=== PATIENT | male | born 1990 | race Caucasian/White ===

== ENCOUNTER 2023-02-18 19:53 | Observation (INO) | payer BC ==
[2023-02-18 20:39] LABS: Basophils % (A) 0 %; Eosinophils # (A) 0.1 k/uL (0-0.7); Eosinophils % (A) 2 %; HCT 44.7 % (39.0-53.0); HGB 15.3 gm/dL (13.0-17.5); Lymphocytes # (A) 1.4 k/uL (1.0-4.8); Lymphocytes % (A) 28 %; MCHC 34.3 g/dL (31.0-37.0); MCV 96.1 fL (80.0-100.0); Mean Platelet Volume 7.5; Monocytes # (A) 0.5 k/uL (0-1.0); Monocytes % (A) 9 %; Neutrophils # (A) 2.9 k/uL (1.3-7.7); Neutrophils % (A) 59 %; Platelet Count 212 k/uL (150-450); RBC 4.65 m/uL (4.30-5.90); RDW 12.4 % (11.5-15.5); WBC 4.9 k/uL (3.8-10.6)
[2023-02-18 20:59] LABS: ALT 47 U/L (4-49); AST 46 U/L (17-59); African American GFR (CKD) >90 (>60 ml/min/1.73 sqM); Albumin 4.6 g/dL (3.5-5.0); Alkaline Phosphatase 76 U/L (38-126); Anion Gap 11 mmol/L; Blood Urea Nitrogen 8 mg/dL (9-20); Calcium 9.3 mg/dL (8.4-10.2); Carbon Dioxide 25 mmol/L (22-30); Chloride 97 mmol/L (98-107); Glucose 106 mg/dL (74-99); Lipase 48 U/L (23-300); Magnesium 1.8 mg/dL (1.6-2.3); Non-African American GFR(CKD) >90 (>60 ml/min/1.73 sqM); Potassium 4.1 mmol/L (3.5-5.1); Sodium 133 mmol/L (137-145); Total Bilirubin 1.4 mg/dL (0.2-1.3); Total Protein 7.8 g/dL (6.3-8.2)
--- NOTE | 2023-02-18 21:21 | CT ---
EXAMINATION TYPE: CT brain wo con DATE OF EXAM: 02/18/2023 COMPARISON: None HISTORY: Seizure x1min CT DLP: 1162.[address] of the brain was performed. The ventricles, basal cisterns and sulci overlying the cerebral convexities demonstrate a normal appe arance. There is no evidence for intracranial hemorrhage or sulcal effacement. No mass effects are seen. Osseous calvarium is intact. If symptoms persist consider MRI as clinically warranted. IMPRESSION: 1. No acute intracranial process is seen at this time.
[2023-02-18] MEDS ORDERED: SODIUM CHLORIDE 0.9% 1,000 ML IV ONE (21:46)
[2023-02-18] MEDS ORDERED: NALOXONE 0.4 MG/ML 1 ML VIAL IV PRN (21:53)
--- NOTE | 2023-02-18 21:53 | ED ---
General Adult HPI - General Chief complaint: Seizure Stated complaint: roxizure Time Seen by Provider: 02/18/23 20:02 Source: patient, family Mode of arrival: EMS Limitations: no limitations - History of Present Illness Initial comments: This is a 32-year-old male with no past medical history presents emergency department via EMS for a reported seizure. The patient's family member was at the house when she noted that the patient did have a tonic-clonic seizure lasting for approximately one minute. The patient reportedly has no history of seizures and is never had a seizure in the past. The patient himself did have confusion upon waking up from the seizure but only lasted for approximately 10 minutes. The patient himself denied any acute pain or distress and denied any lightheadedness or dizziness as well as any headaches prior to the seizure-like activity. The patient himself denied any acute pain at this time. The patient was resting in bed comfortably. The patient did state that he uses alcohol approximate 2 times per week but stated that is not consistent. The patient denied any other drug use. - Related Data Allergies Allergy/AdvReac Type Severity Reaction Status Date / Time shellfish derived [Shellfish] Allergy Anaphylaxis Verified 02/18/23 20:02 Review of Systems ROS Statement: Those systems with pertinent positive or pertinent negative responses have been documented in the HPI. ROS Other: All systems not noted in ROS Statement are negative. Past Medical History Additional Past Medical History / Comment(s): kidney stones History of Any Multi-Drug Resistant Organisms: None Reported Past Psychological History: No Psychological Hx Reported Smoking Status: Current every day smoker Past Alcohol Use History: Occasional Past Drug Use History: None Reported General Exam Limitations: no limitations General appearance: alert, in no apparent distress Head exam: Present: atraumatic, normocephalic, normal inspection Eye exam: Present: normal appearance, PERRL Pupils: Present: normal accommodation ENT exam: Present: normal exam, normal oropharynx, mucous membranes moist Neck exam: Present: normal inspection, full ROM Respiratory exam: Present: normal lung sounds bilaterally Cardiovascular Exam: Present: regular rate, normal rhythm, normal heart sounds GI/Abdominal exam: Present: soft, normal bowel sounds Extremities exam: Present: normal inspection, full ROM Back exam: Present: normal inspection, full ROM Neurological exam: Present: alert, oriented X3, CN II-XII intact Psychiatric exam: Present: normal affect, normal mood Skin exam: Present: warm, dry Course Vital Signs 02/18/23 19:56 Temperature 97.6 F Pulse Rate 101 H Respiratory 26 H Rate Blood Pressure 134/96 O2 Sat by Pulse 99 Oximetry EKG Findings - EKG Comments: EKG Findings:: An EKG was obtained was interpreted by myself showing a rate of 99, MN interval 143, QRS duration of 94 and QTC of 377. This EKG showed a normal sinus rhythm with an incomplete right bundle branch block. There was no ST segment elevation or depression noted. Medical Decision Making - Medical Decision Making Was pt. sent in by a medical professional or institution (, PA, RN QUALITY, urgent care, hospital, or fdc...) When possible be specific @ -No Did you speak to anyone other than the patient for history (EMS, parent, family, police, friend...)? What history was obtained from this source @ -Yes, patient family member who witnessed the tonic clonic seizure and stated that it lasted 1 minute and had confusion after the episode Did you review nursing and triage notes (agree or disagree)? Why? @ -I reviewed and agree with nursing and triage notes Were old charts reviewed (outside hosp., previous admission, EMS record, old EKG, old radiological studies, urgent care reports/EKG's, fdc records)? Report findings @ -No old charts were reviewed Differential Diagnosis (chest pain, altered mental status, abdominal pain women, abdominal pain men, vaginal bleeding, weakness, fever, dyspnea, syncope, headache, dizziness, GI bleed, back pain, seizure, CVA, palpatations, mental health)? @ -New onset seizure, intracranial tumor, electrolyte abnormality EKG interpreted by me (3pts min.). @ -As above X-rays interpreted by me (1pt min.). @ -None done CT interpreted by me (1pt min.). @ -CT head was obtained and was interpreted by myself showing no acute process. U/S interpreted by me (1pt. min.). @ -None done What testing was considered but not performed or refused? (CT, X-rays, U/S, labs)? Why? @ -None What meds were considered but not given or refused? Why? @ -None Did you discuss the management of the patient with other professionals (professionals i.e. , PA, RN QUALITY, lab, RT, psych nurse, social media intern, derrick boat lever operator, teacher, patient safety officer, caseworker intake)? Give summary @ -Yes, admitting physician was contacted regarding patient's admission. Was smoking cessation discussed for >3mins.? @ -No Was critical care preformed (if so, how long)? @ -No Were there social determinants of health that impacted care today? How? (Homelessness, low income, unemployed, alcoholism, drug addiction, transportation, low edu. Level, literacy, decrease access to med. care, detention, rehab)? @ -No Was there de-escalation of care discussed even if they declined (Discuss DNR or withdrawal of care, Hospice)? DNR status @ -No What co-morbidities impacted this encounter? (DM, HTN, Smoking, COPD, CAD, Cancer, CVA, ARF, Chemo, Hep., AIDS, mental health diagnosis, sleep apnea, morbid obesity)? @ -None Was patient admitted / discharged? Hospital course, mention meds given and route, prescriptions, significant lab abnormalities, going to OR and other pertinent info. @ -The patient was seen and evaluated in the emergency department. Physical exam, the patient was resting in bed without any acute distress. Vital signs ad mission were stable. All workup including CT head was negative and there was no known etiology for his new-onset seizures. Due to this in the setting of the patient's symptoms, the patient will be admitted for further workup and evaluation of his new-onset seizures. The patient was agreeable to this plan and was admitted in stable condition. Undiagnosed new problem with uncertain prognosis? @ -No Drug Therapy requiring intensive monitoring for toxicity (Heparin, Nitro, Insulin, Cardizem)? @ -No Were any procedures done? @ -No Diagnosis/symptom? @ -New-onset seizure Acute, or Chronic, or Acute on Chronic? @ -Acute Uncomplicated (without systemic symptoms) or Complicated (systemic symptoms)? @ -Complicated Side effects of treatment? @ -No Exacerbation, Progression, or Severe Exacerbation? @ -No Poses a threat to life or bodily function? How? (Chest pain, [place], [place], pneumonia, PE, COPD, DKA, ARF, appy, cholecystitis, CVA, Diverticulitis, Homicidal, Suicidal, threat to staff... and all critical care pts) @ -Yes, continued seizures can lead to permanent damage and bodily harm with possible - Lab Data Result diagrams: 02/18/23 20:18 02/18/23 20:18 Lab Results 02/18/23 02/18/23 02/18/23 Range/Units 20:18 20:18 20:18 WBC 4.9 (3.8-10.6) k/uL RBC 4.65 (4.30-5.90) m/uL Hgb 15.3 (13.0-17.5) gm/dL Hct 44.7 (39.0-53.0) % MCV 96.1 (80.0-100.0) fL MCH 33.0 (25.0-35.0) pg MCHC 34.3 (31.0-37.0) g/dL RDW 12.4 (11.5-15.5) % Plt Count 212 (150-450) k/uL MPV 7.5 Neutrophils % 59 % Lymphocytes % 28 % Monocytes % 9 % Eosinophils % 2 % Basophils % 0 % Neutrophils # 2.9 (1.3-7.7) k/uL Lymphocytes # 1.4 (1.0-4.8) k/uL Monocytes # 0.5 (0-1.0) k/uL Eosinophils # 0.1 (0-0.7) k/uL Basophils # 0.0 (0-0.2) k/uL Sodium 133 L (137-145) mmol/L Potassium 4.1 (3.5-5.1) mmol/L Chloride 97 L (98-107) mmol/L Carbon Dioxide 25 (22-30) mmol/L Anion Gap 11 mmol/L BUN 8 L (9-20) mg/dL Creatinine 0.60 L (0.66-1.25) mg/dL Est GFR (CKD-EPI)AfAm >90 (>60 ml/min/1.73 sqM) Est GFR (CKD-EPI)NonAf >90 (>60 ml/min/1.73 sqM) Glucose 106 H (74-99) mg/dL Plasma Lactic Acid Tree 2.9 H* (0.7-2.0) mmol/L Calcium 9.3 (8.4-10.2) mg/dL Magnesium 1.8 (1.6-2.3) mg/dL Total Bilirubin 1.4 H (0.2-1.3) mg/dL AST 46 (17-59) U/L ALT 47 (4-49) U/L Alkaline Phosphatase 76 (38-126) U/L Total Protein 7.8 (6.3-8.2) g/dL Albumin 4.6 (3.5-5.0) g/dL Lipase 48 (23-300) U/L Disposition Clinical Impression: New onset seizure Disposition: ADMITTED IP TO THIS [facility] Condition: Stable Is patient prescribed a controlled substance at d/c from ED?: No Referrals: None,Stated [Primary Care Provider] - 1-2 days Time of Disposition: 21:45 Decision to Admit Reason: Admit from EC Decision Date: 02/18/23 Decision Time: 21:45
[2023-02-18] MEDS: SODIUM CHLORIDE 0.9% 1,000 ML IV SCH (22:44)
[2023-02-18] MEDS ORDERED: LORazepam 2 MG/ML INJ IV PRN (22:59)
[2023-02-19 03:24] VITALS: TEMP 97.6
[2023-02-19 09:16] VITALS: BP 115/71; PULSE 72; RESP 18
[2023-02-19 12:42] LABS: Amphetamine Screen,Urine Detected (NotDetected); Benzodiazepines Screen,Urine Not Detected (NotDetected); Cocaine Screen,Urine Not Detected (NotDetected); Opiate Screen,Urine Not Detected (NotDetected); Phencyclidine Screen,Urine Not Detected (NotDetected); Urn Cannabinoid Scrn Not Detected (NotDetected)
[2023-02-19 12:43] LABS: Barbiturate Screen,Urine Not Detected (NotDetected); Methadone Screen, Urine Not Detected (NotDetected); Oxycodone Screen, Urine Not Detected (NotDetected); Tricyclic Antidepressant,Urine Not Detected (NotDetected)
[2023-02-19] MEDS: SODIUM CHLORIDE 0.9% 1,000 ML IV SCH (14:11)
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
--- NOTE | 2023-03-01 23:42 | P.HPIM ---
History of Present Illness H&P Date: 02/19/23 Chief Complaint: Seizures Patient is a 32-year-old male with a known history of renal stones, currently everyday smoker and recent alcohol use was brought to the hospital by ambulance due to new onset seizure. Patient's fianc is at bedside who witnessed seizure activity. Patient was on the couch and watching TV and patient's BIMC went to the kitchen to get some food heated in the microwave when she turned around she saw him having jerking movements and foaming from the mouth and was having shaking all over the body. Episode lasted about 1 minute. Patient felt very weak and drowsy for about 5 minutes and came back to baseline. By the time EMS had ordered patient is back to baseline. Denied any bladder or bowel incontinence. No tongue bite. Otherwise patient denies any fever or chills. No headache dizziness or blurred vision. Patient does vaping and history of smoking quit 2 years ago. Patient states that he has been taking alcohol heavily about fifth of vodka 3-4 times a week which he has been doing for for the past 1 and half week. Last drink was on Tuesday. And had seizure on Tuesday night. Previously he was drinking about a couple of shots of vodka articular 1 to twice a week. CT head showed no acute intracranial process. Laboratory showed WBC 4.9 hemoglobin 15.3 and platelets 212 sodium 133 potassium 4.1 chloride 97 bicarb is 25 BUN 18 creatinine 0.6 and blood sugar 106 and lactic acid 2.9 on admission and total bilirubin level is 1.8 magnesium 1.8 and UDS is positive for amphetamine screen. EKG showed sinus rhythm. Review of Systems Constitutional: Patient denies any fever or chills . no Generalized weakness. Abdomen: Patient denied any nausea or vomiting or abd. pain Cardiovascular: Patient denies any chest pain or short of breath no palpitations. Respiratory: patient denied any cough . no sputum production. No shortness of breath Neurologic: Patient denied any numbness or tingling headache. Musculoskeletal: Patient denies any complaints of joint swelling or deformity. Skin: Negative Psychiatric: Negative Endocrine: No heat or cold intolerance. No recent weight gain. Genitourinary: No dysuria or hematuria. All other 14 point ROS negative except the above Past Medical History Additional Past Medical History / Comment(s): kidney stones History of Any Multi-Drug Resistant Organisms: None Reported Past Psychological History: No Psychological Hx Reported Smoking Status: Current every day smoker Past Alcohol Use History: Occasional Past Drug Use History: None Reported Medications and Allergies Home Medications Medication Instructions Recorded Confirmed Type Folic Acid 1 mg PO DAILY #14 tablet 02/19/23 Rx Thiamine [Vitamin B-1] 100 mg PO DAILY #14 tablet 02/19/23 Rx Allergies Allergy/AdvReac Type Severity Reaction Status Date / Time shellfish derived [Shellfish] Allergy Anaphylaxis Verified 02/18/23 22:08 Physical Exam Vitals: Vital Signs Temp Pulse Pulse Resp BP BP Pulse Ox 02/19/23 07:06 97.6 F 72 18 115/71 98 02/19/23 02:45 97.6 F 68 17 140/72 98 02/18/23 23:32 98.5 F 88 17 106/67 96 02/18/23 19:56 97.6 F 101 H 26 H 134/96 99 Intake and Output 02/18/23 02/19/23 02/19/23 22:59 06:59 14:59 Other: # Voids 1 Weight 74.843 kg 74.843 kg PHYSICAL EXAMINATION: Patient is lying in the bed comfortably, no acute distress, awake alert and oriented.. HEENT: Normocephalic. Neck is supple. Pupils reactive. Nostrils clear. Oral cavity is moist. Neck reveals no JVD, carotid bruits, or thyromegaly. CHEST EXAMINATION: Trachea is central. Symmetrical expansion. Lung rivas clear to auscultation and percussion. CARDIAC: Normal S1, S2 with no gallops. No murmurs ABDOMEN: Soft. Bowel sounds present. Nontender. No organomegaly. No abdominal bruits. Extremities: reveal no edema. No clubbing or cyanosis Neurologically awake, alert, oriented x3 with well-coordinated movements. No focal deficits noted Skin: No rash or skin lesions. Psychiatric: Coperative. Nonsuicidal, Musculoskeletal: No joint swelling or deformity. Normal range of motion. Results CBC & Chem 7: 02/18/23 20:18 02/18/23 20:18 Labs: Abnormal Lab Results - Last 24 Hours (Table) 02/18/23 02/18/23 Range/Units 20:18 20:18 Sodium 133 L (137-145) mmol/L Chloride 97 L (98-107) mmol/L BUN 8 L (9-20) mg/dL Creatinine 0.60 L (0.66-1.25) mg/dL Glucose 106 H (74-99) mg/dL Plasma Lactic Acid Tree 2.9 H* (0.7-2.0) mmol/L Total Bilirubin 1.4 H (0.2-1.3) mg/dL Thrombosis Risk Factor Assmnt - DVT/VTE Prophylaxis DVT/VTE Prophylaxis: Pharmacologic Prophylaxis ordered Assessment and Plan Assessment: New onset seizures likely due to alcohol withdrawal. Lactic acidosis 2.9 on admission Hypovolemic hyponatremia Ongoing vaping History of smoking 1 pack/day quit 2 years ago Heavy alcohol use for the past 1 and half week. History of marijuana use UDS positive for amphetamines History of renal stones DVT prophylaxis with heparin subcu Plan: Patient will be continued on IV hydration and continue with seizure precautions and fall precautions. No further episodes of seizures while in the hospital. Replace electrolytes and continue to monitor. Monitor for alcohol withdrawal sy mptoms. Patient was seen by neurology and recommended EEG. EEG could not be done until Tuesday morning while in the hospital. Patient is back to baseline and would like to be discharged home. Recommended to follow-up with outpatient neurology for MRI of the brain and also EEG. Cleared from neurology standpoint. Continue with thiamine and folic acid. Time with Patient: Greater than 30
--- NOTE | 2023-03-01 23:43 | P.DS ---
Providers Date of admission: 02/18/23 21:53 Expected date of discharge: 02/19/23 Attending physician: Karsten Cruz Consults: 02/18/23 21:53 Consult Physician Routine Consulting Provider: Danielle Skaggs Consult Reason/Comments: New onset seizure Do you want consulting provider notified?: Yes, Notify in am Primary care physician: Stated None Hospital Course: Discharge diagnosis New onset seizures likely due to alcohol withdrawal. Lactic acidosis 2.9 on admission Hypovolemic hyponatremia Ongoing vaping History of smoking 1 pack/day quit 2 years ago Heavy alcohol use for the past 1 and half week. History of marijuana use UDS positive for amphetamines History of renal stones DVT prophylaxis with heparin subcu Hospital course Patient is a 32-year-old male with a known history of renal stones, currently everyday smoker and recent alcohol use was brought to the hospital by ambulance due to new onset seizure. Patient's fianc is at bedside who witnessed seizure activity. Patient was on the couch and watching TV and patient's BIMC went to the kitchen to get some food heated in the microwave when she turned around she saw him having jerking movements and foaming from the mouth and was having shaking all over the body. Episode lasted about 1 minute. Patient felt very weak and drowsy for about 5 minutes and came back to baseline. By the time EMS had ordered patient is back to baseline. Denied any bladder or bowel incontinence. No tongue bite. Otherwise patient denies any fever or chills. No headache dizziness or blurred vision. Patient does vaping and history of smoking quit 2 years ago. Patient states that he has been taking alcohol heavily about fifth of vodka 3-4 times a week which he has been doing for for the past 1 and half week. Last drink was on Tuesday. And had seizure on Tuesday night. Previously he was drinking about a couple of shots of vodka articular 1 to twice a week. CT head showed no acute intracranial process. Laboratory showed WBC 4.9 hemoglobin 15.3 and platelets 212 sodium 133 potassium 4.1 chloride 97 bicarb is 25 BUN 18 creatinine 0.6 and blood sugar 106 and lactic acid 2.9 on admission and total bilirubin level is 1.8 magnesium 1.8 and UDS is positive for amphetamine screen. EKG showed sinus rhythm. Patient was continued on IV hydration and continue with seizure precautions and fall precautions. No further episodes of seizures while in the hospital. Replace electrolytes and continue to monitor. Monitor for alcohol withdrawal symptoms. Patient was seen by neurology and recommended EEG. EEG could not be done until Tuesday morning while in the hospital. Patient is back to baseline and would like to be discharged home. Recommended to follow-up with outpatient neurology for MRI of the brain and also EEG. Cleared from neurology standpoint. Continue with thiamine and folic acid. PHYSICAL EXAMINATION: Patient is lying in the bed comfortably, no acute distress, awake alert and oriented.. HEENT: Normocephalic. Neck is supple. Pupils reactive. Nostrils clear. Oral cavity is moist. Neck reveals no JVD, carotid bruits, or thyromegaly. CHEST EXAMINATION: Trachea is central. Symmetrical expansion. Lung rivas clear to auscultation and percussion. CARDIAC: Normal S1, S2 with no gallops. No murmurs ABDOMEN: Soft. Bowel sounds present. Nontender. No organomegaly. No abdominal bruits. Extremities: reveal no edema. No clubbing or cyanosis Neurologically awake, alert, oriented x3 with well-coordinated movements. No focal deficits noted Skin: No rash or skin lesions. Psychiatric: Coperative. Nonsuicidal, Musculoskeletal: No joint swelling or deformity. Normal range of motion. Discharge vitals reviewed. Patient Condition at Discharge: Stable Plan - Discharge Summary New Discharge Prescriptions: New Folic Acid 1 mg PO DAILY #14 tablet Thiamine [Vitamin B-1] 100 mg PO DAILY #14 tablet Discharge Medication List Folic Acid 1 mg PO DAILY #14 tablet 02/19/23 [Rx] Thiamine [Vitamin B-1] 100 mg PO DAILY #14 tablet 02/19/23 [Rx] Follow up Appointment(s)/Referral(s): Ada Avitia MD [Medical Doctor] - 1 Week None,Stated [Primary Care Provider] - 1-2 days Patient Instructions/Handouts: Seizure/Epilepsy Discharge Instructions & F ollow-Up Discharge Disposition: HOME SELF-CARE
== END 2023-02-19 14:20 | disposition home or self-care (01) ==
LOC: EC 19:53 → INTOOBSV 21:53 → 4SSUR 21:53 → 6NMEDSUR 22:52 → UNDODISIN 02-19 14:20
PROVIDERS: ADMIT Family Medicine; ATTEND Family Medicine
DX: R56.9 Unspecified convulsions (principal); F12.90 Cannabis use, unspecified, uncomplicated; F15.90 Other stimulant use, unspecified, uncomplicated; E86.1 Hypovolemia; E87.1 Hypo-osmolality and hyponatremia; F17.290 Nicotine dependence, other tobacco product, uncomplicated; F10.90 Alcohol use, unspecified, uncomplicated; Z87.442 Personal history of urinary calculi
CPT/HCPCS: 96360; 99285; 36415; 93005; 80053; 83605 ×2; 83690; 83735; 85025; 80306; 70450; G0378 ×2

== ENCOUNTER 2023-11-09 14:34 | Emergency (ER) | payer BC ==
[2023-11-09 15:03] VITALS: BP 132/79; PULSE 99; RESP 18; TEMP 98.4
--- NOTE | 2023-11-09 16:52 | CT ---
EXAMINATION TYPE: CT brain cspine wo con CT DLP: 1396.4 mGycm, Automated exposure control for dose reduction was used. DATE OF EXAM: 11/09/2023 4:40 PM COMPARISON: None. CLINICAL INDICATION:Male, 32 years old with history of seizure w/ fall; Pt states he stood up too fas t and passed out, hitting the rt side of his head. Has bruising to rt ear. Had a 3-4min seizure follo wing. TECHNIQUE: Brain: Multiple axial CT images of the brain were obtained without IV contrast. Cspine: Axial CT images from the skull base to the inferior aspect of T2 we obtained without intraven ous contrast. Coronal and sagittal reformatted images were also reviewed. FINDINGS: Brain: Extra-axial spaces: No abnormal extra-axial fluid collections. Ventricular system: Within normal limits Cerebral parenchyma: No acute intraparenchymal hemorrhage or mass effect. The helms-white junction is well differentiated. Cerebellum: Unremarkable. Mass effect: No evidence of midline shift. Intracranial vasculature: unremarkable Soft tissues: Normal. Calvarium/osseous structures: No depressed skull fracture. Paranasal sinuses and mastoid air cells: Mild scattered mucosal thickening and or secretions. Visualized orbits: Orbital contents are intact. Cervical spine: Fracture: None. Osseous structures: Unremarkable Vertebral alignment: Within normal limits. Spinal canal/Neural Foramina: No evidence of significant spinal canal narrowing. No evidence for sign ificant neural foraminal stenosis. Neck soft tissues: Prevertebral soft tissues are within normal limits. Other: The airway is patent. The lung apices are clear. IMPRESSION: 1. No acute intracranial process. 2. No evidence of cervical spine fracture.
--- NOTE | 2023-12-24 17:02 | ED ---
General Adult HPI - General Chief complaint: Seizure Stated complaint: Syncope,Seizure w/hit head Time Seen by Provider: 11/09/23 21:18 Source: patient Mode of arrival: ambulatory Limitations: no limitations - History of Present Illness Initial comments: Quick note: 33-year-old male presenting for evaluation of syncopal episode and seizure - Related Data Previous Rx's Medication Instructions Recorded Folic Acid 1 mg PO DAILY #14 tablet 02/19/23 Thiamine [Vitamin B-1] 100 mg PO DAILY #14 tablet 02/19/23 Allergies Allergy/AdvReac Type Severity Reaction Status Date / Time shellfish derived [Shellfish] Allergy Anaphylaxis Verified 11/09/23 14:58 Review of Systems ROS Statement: Those systems with pertinent positive or pertinent negative responses have been documented in the HPI. ROS Other: All systems not noted in ROS Statement are negative. Past Medical History Additional Past Medical History / Comment(s): kidney stones, seizure History of Any Multi-Drug Resistant Organisms: None Reported Past Surgical History: No Surgical Hx Reported Past Psychological History: No Psychological Hx Reported Smoking Status: Current every day smoker Past Alcohol Use History: Occasional Past Drug Use History: None Reported General Exam Limitations: no limitations Course Vital Signs 11/09/23 14:55 Temperature 98.4 F Pulse Rate 99 Respiratory 18 Rate Blood Pressure 132/79 O2 Sat by Pulse 99 Oximetry Medical Decision Making - Medical Decision Making Quick note was performed on this patient. Patient later left AGAINST MEDICAL ADVICE. I performed the quick note portion of this visit, electronically signed Glenis Giles PA-C Disposition Clinical Impression: Seizure Disposition: LEFT AGAINST MEDICAL ADVICE Condition: Undetermined Referrals: None,Stated [Primary Care Provider] - 1-2 days
== END 2023-11-10 00:41 | disposition left against medical advice (07) ==
LOC: EC 14:34
DX: R56.9 Unspecified convulsions (principal); F17.200 Nicotine dependence, unspecified, uncomplicated; Z53.29 Procedure and treatment not carried out because of patient's decision for other reasons; Z91.013 Allergy to seafood
CPT/HCPCS: 70450; 72125; 99284

== ENCOUNTER 2024-09-25 18:35 | Observation (INO) | payer BC ==
--- NOTE | 2024-09-25 19:35 | ED ---
Alcohol HPI - General Chief Complaint: Alcohol Stated Complaint: Withdrawls Alcohol Time Seen by Provider: 09/25/24 18:44 Source: patient, family Mode of arrival: ambulatory Limitations: no limitations - History of Present Illness Initial Comments: This patient is a 33-year-old man who presents with complaint that he feels like he is starting to have alcohol withdrawal. The patient states that he has been drinking approximately 1/5 and a half of alcohol per day. He states that previously when he has tried to stop drinking he has had withdrawal seizures. Patient states he started to feel a little anxious and shaky. Complaint: alcohol intoxication, alcohol withdrawal, desires rehab -: hour(s) Previous Visits for Alcohol Intoxication?: Yes Recent Trauma: No Associated Symptoms: nausea Treatments Prior to Arrival: none Chronic Alcohol Use: Yes - Related Data Previous Rx's Medication Instructions Recorded Folic Acid 1 mg PO DAILY #14 tablet 02/19/23 Thiamine [Vitamin B-1] 100 mg PO DAILY #14 tablet 02/19/23 Allergies Allergy/AdvReac Type Severity Reaction Status Date / Time shellfish derived [Shellfish] Allergy Anaphylaxis Verified 09/25/24 18:38 Review of Systems ROS Statement: Those systems with pertinent positive or pertinent negative responses have been documented in the HPI. ROS Other: All systems not noted in ROS Statement are negative. Constitutional: Denies: fever, weakness Eyes: Denies: vision change Respiratory: Denies: cough, dyspnea Cardiovascular: Denies: chest pain, palpitations, edema, syncope Gastrointestinal: Reports: nausea. Denies: abdominal pain, vomiting, diarrhea Genitourinary: Denies: dysuria, hematuria Musculoskeletal: Denies: back pain Skin: Denies: rash Neurological: Denies: headache, weakness Psychiatric: Reports: anxiety. Denies: homicidal thoughts, suicidal thoughts Past Medical History Additional Past Medical History / Comment(s): kidney stones, alcohol withdrawal seizures History of Any Multi-Drug Resistant Organisms: None Reported Past Surgical History: No Surgical Hx Reported Additional Past Surgical History / Comment(s): Stents in kidneys, lithotripsy Past Psychological History: No Psychological Hx Reported Smoking Status: Current every day smoker Past Alcohol Use History: Abuse, Daily, Heavy Past Drug Use History: Marijuana General Exam Limitations: no limitations General appearance: alert, in no apparent distress, anxious Head exam: Present: atraumatic, normocephalic Eye exam: Present: normal appearance. Absent: scleral icterus, conjunctival injection Neck exam: Present: normal inspection Respiratory exam: Present: normal lung sounds bilaterally. Absent: respiratory distress, wheezes, rales, rhonchi, stridor, accessory muscle use Cardiovascular Exam: Present: regular rate, normal rhythm, normal heart sounds. Absent: systolic murmur, diastolic murmur, rubs, gallop GI/Abdominal exam: Present: soft. Absent: distended, tenderness, guarding, rebound, rigid, mass Extremities exam: Present: normal inspection, normal capillary refill. Absent: pedal edema, calf tenderness Back exam: Present: normal inspection. Absent: CVA tenderness (R), CVA tenderness (L) Neurological exam: Present: alert Psychiatric exam: Present: normal affect, normal mood, anxious. Absent: flat affect, manic, homicidal ideation, suicidal ideation Skin exam: Present: warm, dry, intact, normal color. Absent: rash Course Vital Signs 09/25/24 09/25/24 18:39 18:58 Temperature 98.2 F Pulse Rate 95 86 Respiratory 18 14 Rate Blood Pressure 129/77 133/92 O2 Sat by Pulse 96 96 Oximetry Disposition Referrals: Jumana Magallon MD [Primary Care Provider] - 1-2 days
[2024-09-25] MEDS: SODIUM CHLORIDE 0.9% 1,000 ML IV STA (19:49)
[2024-09-25] MEDS: chlordiazePOXIDE 25 MG CAP PO STA (19:57)
[2024-09-25 20:03] LABS: Basophils # (A) 0.1 k/uL (0-0.2); Basophils % (A) 1 %; Eosinophils % (A) 0 %; HCT 46.5 % (39.0-53.0); HGB 15.4 gm/dL (13.0-17.5); Lymphocytes # (A) 2.1 k/uL (1.0-4.8); Lymphocytes % (A) 27 %; MCH 33.2 pg (25.0-35.0); MCV 100.7 fL (80.0-100.0); Mean Platelet Volume 7.1; Monocytes # (A) 0.3 k/uL (0-1.0); Monocytes % (A) 4 %; Neutrophils % (A) 64 %; Platelet Count 166 k/uL (150-450); RBC 4.62 m/uL (4.30-5.90); RDW 12.5 % (11.5-15.5); WBC 7.8 k/uL (3.8-10.6)
[2024-09-25 20:10] LABS: ALT 164 U/L (4-49); AST 127 U/L (17-59); African American GFR (CKD) >90 (>60 ml/min/1.73 sqM); Albumin 5.1 g/dL (3.5-5.0); Alkaline Phosphatase 71 U/L (38-126); Anion Gap 17 mmol/L; Blood Urea Nitrogen 12 mg/dL (9-20); Calcium 9.3 mg/dL (8.4-10.2); Carbon Dioxide 24 mmol/L (22-30); Chloride 106 mmol/L (98-107); Glucose 99 mg/dL (74-99); Non-African American GFR(CKD) >90 (>60 ml/min/1.73 sqM); Potassium 4.2 mmol/L (3.5-5.1); Sodium 147 mmol/L (137-145); Total Bilirubin 0.5 mg/dL (0.2-1.3); Total Protein 8.4 g/dL (6.3-8.2)
[2024-09-25 20:21] LABS: Alcohol 394 mg/dL
[2024-09-25] MEDS ORDERED: NALOXONE 0.4 MG/ML 1 ML VIAL IV PRN (20:49)
[2024-09-25] MEDS ORDERED: LORazepam 2 MG/ML INJ IV PRN ×2 (20:51)
[2024-09-25] MEDS: SODIUM CHLORIDE 0.9% 1,000 ML IV SCH (21:36)
[2024-09-25] MEDS: FAMOTIDINE 20 MG TAB PO SCH (21:51)
--- NOTE | 2024-09-25 22:01 | P.HPIM ---
History of Present Illness H&P Date: 09/25/24 Chief Complaint: alcohol withdrawal symptoms History of present illness; 33-year-old man with a PMH of renal stones, current everyday smoker, previous seizures and known alcohol use presents to the emergency department because he feels like he is starting to have alcohol withdrawals. Patient states he been drinking approximately 1/5 and a half of alcohol per day. He notes that his last drink was this afternoon at 4 PM, when he completed 1/5 of vodka. Additionally he notes that his most recent seizure was on Tuesday of last week. He states that he has attempted to quit drinking alcohol 56 times this year, and suffers from seizures each time. He is presenting today in an effort to get assistance in dealing with the seizures/withdrawal that he feels as though are imminent. He has no acute complaints at this time. Imaging: -EKG currently pending Vitals: -Blood pressure 134/85, heart rate 105, respiratory rate 18, SpO2 98% on room air Patient admitted to internal medicine service REVIEW OF SYSTEMS: CONSTITUTIONAL: No fever, no malaise, no fatigue. HEENT: No recent visual problems or hearing problems. Denied any sore throat. CARDIOVASCULAR: No chest pain, orthopnea, PND, no palpitations, no syncope. PULMONARY: No shortness of breath, no cough, no hemoptysis. GASTROINTESTINAL: No diarrhea, no nausea, no vomiting, no abdominal pain. NEUROLOGICAL: No headaches, no weakness, no numbness. HEMATOLOGICAL: Denies any bleeding or petechiae. GENITOURINARY: Denies any burning micturition, frequency, or urgency. MUSCULOSKELETAL/RHEUMATOLOGICAL: Denies any joint pain, swelling, or any muscle pain. ENDOCRINE: Denies any polyuria or polydipsia. The rest of the 14-point review of systems is negative. PHYSICAL EXAMINATION: GENERAL: The patient is alert and oriented x3, not in any acute distress. Well developed, well nourished. HEENT:No scleral icterus. No conjunctival pallor. Normocephalic, atraumatic. CARDIOVASCULAR: S1 and S2 present. No murmurs, rubs, or gallops. PULMONARY: Chest is clear to auscultation, no wheezing or crackles. ABDOMEN: Soft, nontender, nondistended, normoactive bowel sounds. No palpable organomegaly. MUSCULOSKELETAL: No joint swelling or deformity. EXTREMITIES: No cyanosis, clubbing, or pedal edema. NEUROLOGICAL: Gross neurological examination did not reveal any focal deficits. SKIN: No rashes. Assessment and plan 33-year-old male with PMH of renal stones, current everyday smoker, previous seizures and known alcohol use presents emergency department because he feels as though he started to have alcohol withdrawals. Discussed with the ED, patient has been accepted to the internal medicine service for further evaluation and monitoring of his alcohol withdrawals. #Alcohol dependence/withdrawals -Serum alcohol level 394 -Alkaline phosphatase 71, albumin 5.1 -Previous hospitalizations for alcohol withdrawal; history of alcohol withdrawal seizures -Ativan ivp per [facility] protocol -Give daily thiamine and folic acid and multivitamin -Seizure and fall precautions -Monitor daily electrolytes -Cardiac monitoring -custodial maintenance worker consult -EKG currently pending #Hypernatremia -Initial sodium 147 -Currently maintained on 75 cc/h normal saline -Continue to monitor cmp #Transaminitis 2/2 alcohol abuse -Initial AST 127, ALT 164 -Continue to monitor CMP CODE STATUS: Full Code GI prohylaxis: Protonix 40 mg BID po DVT prophylaxis: [place] Risk Score: 0 point (low risk for VTE, prophylaxis not indicated) , mechanical DVT PPX with SCD Dictation was produced using [employer] dictation software. please excuse any grammatical, word or spelling errors. Past Medical History Additional Past Medical History / Comment(s): kidney stones, alcohol withdrawal seizures History of Any Multi-Drug Resistant Organisms: None Reported Past Surgical History: No Surgical Hx Reported Additional Past Surgical History / Comment(s): Stents in kidneys, lithotripsy Past Psychological History: No Psychological Hx Reported Smoking Status: Current every day smoker Past Alcohol Use History: Abuse, Daily, Heavy Past Drug Use History: Marijuana Medications and Allergies Home Medications Medication Instructions Recorded Confirmed Type No Known Home Medications 09/25/24 09/25/24 History Allergies Allergy/AdvReac Type Severity Reaction Status Date / Time iodine Allergy Anaphylaxis Verified 09/25/24 19:58 shellfish derived [Shellfish] Allergy Anaphylaxis Verified 09/25/24 19:58 Physical Exam Vitals: Vital Signs Temp Pulse Resp BP Pulse Ox 09/25/24 19:59 105 H 18 134/85 98 09/25/24 18:58 86 14 133/92 96 09/25/24 18:39 98.2 F 95 18 129/77 96 Intake and Output 09/25/24 09/25/24 09/25/24 06:59 14:59 22:59 Other: Weight 73.936 kg Results CBC & Chem 7: 09/25/24 19:37 09/25/24 19:37 Labs: Abnormal Lab Results - Last 24 Hours (Table) 09/25/24 09/25/24 Range/Units 19:37 19:37 MCV 100.7 H (80.0-100.0) fL Sodium 147 H (137-145) mmol/L AST 127 H (17-59) U/L ALT 164 H (4-49) U/L Total Protein 8.4 H (6.3-8.2) g/dL Albumin 5.1 H (3.5-5.0) g/dL Serum Alcohol 394 H* mg/dL Assessment and Plan Assessment: I have seen and evaluated the patient today. I Discussed the case with the resident and agree with the resident's findings I edited the assessment and plan as necessary as documented in the resident's note.
[2024-09-26] MEDS: chlordiazePOXIDE 25 MG CAP PO PRN (00:07)
[2024-09-26] MEDS: LORazepam 2 MG/ML INJ IV PRN (01:35)
[2024-09-26] MEDS: NICOTINE 21MG/24HR PATCH TRANSDERM SCH (08:34)
[2024-09-26] MEDS: MULTIVITAMINS, THERA 1 EACH TAB PO SCH (08:34)
[2024-09-26] MEDS: THIAMINE 100 MG TAB PO SCH (08:34)
[2024-09-26] MEDS: FOLIC ACID 1 MG TAB PO SCH (08:34)
[2024-09-26] MEDS: PANTOPRAZOLE 40 MG TABLET PO SCH (08:35)
[2024-09-26 08:44] LABS: HCT 41.4 % (39.6-50.0); HGB 13.8 g/dL (13.0-17.0); MCH 33.3 pg (27.0-32.0); MCHC 33.3 g/dL (32.0-37.0); NRBC Per 100 WBC 0 X 10*3/uL (0.00-0.01); Platelet Count 157 X 10*3/uL (140-440); RBC 4.14 X 10*6/uL (4.40-5.60); RDW 12.9 % (11.5-14.5); WBC 5.84 X 10*3/uL (4.50-10.00)
[2024-09-26 08:58] LABS: ALT 136 U/L (10-49); AST 108 U/L (14-35); Albumin 4.3 g/dL (3.8-4.9); Albumin/Globulin Ratio 1.72 Ratio (1.60-3.17); Alkaline Phosphatase 55 U/L (41-126); Blood Urea Nitrogen 10.8 mg/dL (9.0-27.0); Calcium 8.4 mg/dL (8.7-10.3); Carbon Dioxide 22.3 mmol/L (21.6-31.8); Chloride 105 mmol/L (96-109); Globulin 2.5 g/dL (1.6-3.3); Glucose 109 mg/dL (70-110); Potassium 3.9 mmol/L (3.5-5.5); Sodium 142 mmol/L (135-145); Total Bilirubin 0.4 mg/dL (0.3-1.2); Total Protein 6.8 g/dL (6.2-8.2)
[2024-09-26 10:08] LABS: Basophils # (A) 0.09 X 10*3/uL (0.00-0.10); Basophils % (A) 1.5 %; Eosinophils # (A) 0.02 X 10*3/uL (0.04-0.35); Eosinophils % (A) 0.3 %; Lymphocytes # (A) 2.06 X 10*3/uL (0.90-5.00); Lymphocytes % (A) 35.3 %; Monocytes # (A) 0.46 X 10*3/uL (0.20-1.00); Monocytes % (A) 7.9 %; Neutrophils # (A) 3.19 X 10*3/uL (1.80-7.70); Neutrophils % (A) 54.7 %
--- NOTE | 2024-09-26 16:39 | P.PN ---
Subjective Progress Note Date: 09/26/24 33-year-old man with a PMH of renal stones, current everyday smoker, previous seizures and known alcohol use presents to the emergency department because he feels like he is starting to have alcohol withdrawals. Patient states he been drinking approximately 1/5 and a half of alcohol per day. He notes that his last drink was this afternoon at 4 PM, when he completed 1/5 of vodka. Additionally he notes that his most recent seizure was on Tuesday of last week. He states that he has attempted to quit drinking alcohol 56 times this year, and suffers from seizures each time. He is presenting today in an effort to get assistance in dealing with the seizures/withdrawal that he feels as though are imminent. He has no acute complaints at this time. Imaging: -EKG showed sinus rhythm with a rate of [address]-T changes good R wave progression QTc 450 Vitals: -Blood pressure 134/85, heart rate 105, respiratory rate 18, SpO2 98% on room air 09/26/2024 patient seen and examined at bedside. Patient reported that he experienced sweats for a few minutes at 1 AM. No acute events overnight. WBC 5.84 hemoglobin 13.8 platelet count 157 sodium 142 potassium 3.9 chloride 105 b icarb 22.3 BUN 10.8 creatinine 0.6 calcium 8.4 AST 108 ALT 136 alk phos 55 albumin 14.3 Review of systems: Pertinent positives and negatives as discussed in HPI, a complete review of systems was performed and all other systems are negative. Pertinent imaging and labs reviewed. Physical examination: Vital signs reviewed General: non toxic, no distress, appears at stated age Derm: no unusual rashes/lesions, warm Head: atraumatic, normocephalic, symmetric Eyes: EOMI, anicteric sclera, pupils equal round reactive to light ENT: Nose and ears atraumatic Neck: No cervical lymphadenopathy, trachea midline, supple Mouth: no lip lesion, mucus membranes moist Cardiovascular: S1S2 reg, no murmur Lungs: CTA bilateral, no rhonchi, no rales, no accessory muscle use Abdominal: soft, nontender to palpation, no guarding Ext: muscle strength 5 out of 5 in all 4 extremities grossly, no gross muscle atrophy, no contractures, positive dorsalis pedis pulse bilateral, no extremity edema Neuro: CN II-XI grossly intact, no gross focal neuro deficits Psych: Alert and oriented x3, appropriate affect and mood Assessment/Plan: 33-year-old male with PMH of renal stones, current everyday smoker, previous s eizures and known alcohol use presents emergency department because he feels as though he started to have alcohol withdrawals. Discussed with the ED, patient has been accepted to the internal medicine service for further evaluation and monitoring of his alcohol withdrawals. #Alcohol intoxication, not in withdrawal #Alcohol use disorder -Cardiac monitoring -supervisor cemetery workers consult -Seizure and fall precautions -EKG showed sinus rhythm with a rate of [address]-T changes good R wave progression QTc 450 -Serum alcohol level 394 -Alkaline phosphatase 71, albumin 5.1 -Monitor daily electrolytes -Previous hospitalizations for alcohol withdrawal; history of alcohol withdrawal seizures -Ativan ivp per [facility] protocol -Discontinued Librium 50 mg p.o. -Give daily thiamine and folic acid and multivitamin -Patient stable and asymptomatic tomorrow may consider discharge #Hypernatremia, resolved -Sodium now at 142 -Currently maintained on 75 cc/h normal saline -Continue to monitor CMP #Transaminitis 2/2 alcohol abuse, stable Patient has not RUQ pain or jaundice -AST 108, ALT 136 -Continue to monitor CMP CODE STATUS: Full Code GI prohylaxis: Protonix 40 mg BID po DVT prophylaxis: [place] Risk Score: 0 point (low risk for VTE, prophylaxis not indicated) , mechanical DVT PPX with SCD Marbella Rai MD PGY-1/Utility [employer]er Dictation was produced using [employer] dictation software. please excuse any grammatical, word or spelling errors. I have seen and evaluated the patient today. Discussed with the resident and agree with the residents finding and plan as documented in the resident's note. Changes highlighted in blue font. Objective - Vital Signs Vital signs: Vital Signs Temp 98.6 F 09/26/24 14:25 Pulse 89 09/26/24 14:25 Resp 16 09/26/24 14:25 BP 131/83 09/26/24 14:25 Pulse Ox 98 09/26/24 14:25 FiO2 Intake & Output 09/25/24 09/26/24 09/26/24 18:59 06:59 18:59 Intake Total 236 Balance 236 Weight 73.936 kg 73.936 kg Intake: Oral 236 Other: Voiding Method Toilet # Voids 2 1 # Bowel Movements 1 - Labs CBC & Chem 7: 09/26/24 04:11 09/26/24 04:11 Labs: Abnormal Lab Results - Last 24 Hours (Table) 09/25/24 09/25/24 09/26/24 Range/Units 19:37 19:37 04:11 RBC 4.14 L (4.40-5.60) X 10*6/uL MCV 100.7 H 100.0 H (80.0-100.0) fL MCH 33.3 H (27.0-32.0) pg Eosinophils # 0.02 L (0.04-0.35) X 10*3/uL Sodium 147 H (137-145) mmol/L Anion Gap (4.00-12.00) mmol/L Calcium (8.7-10.3) mg/dL AST 127 H (17-59) U/L ALT 164 H (4-49) U/L Total Protein 8.4 H (6.3-8.2) g/dL Albumin 5.1 H (3.5-5.0) g/dL Serum Alcohol 394 H* mg/dL 09/26/24 Range/Units 04:11 RBC (4.40-5.60) X 10*6/uL MCV (80.0-100.0) fL MCH (27.0-32.0) pg Eosinophils # (0.04-0.35) X 10*3/uL Sodium (137-145) mmol/L Anion Gap 14.70 H (4.00-12.00) mmol/L Calcium 8.4 L (8.7-10.3) mg/dL AST 108 H (17-59) U/L ALT 136 H (4-49) U/L Total Protein (6.3-8.2) g/dL Albumin (3.5-5.0) g/dL Serum Alcohol mg/dL
[2024-09-27 07:22] VITALS: BP 124/77; PULSE 73; RESP 15; TEMP 98.3
[2024-09-27 10:37] LABS: Basophils # (A) 0.07 X 10*3/uL (0.00-0.10); Basophils % (A) 0.8 %; Eosinophils # (A) 0.07 X 10*3/uL (0.04-0.35); Eosinophils % (A) 0.8 %; HCT 46.1 % (39.6-50.0); HGB 15.5 g/dL (13.0-17.0); Lymphocytes # (A) 2.03 X 10*3/uL (0.90-5.00); Lymphocytes % (A) 24.6 %; MCH 33.3 pg (27.0-32.0); MCHC 33.6 g/dL (32.0-37.0); MCV 98.9 FL (80.0-97.0); Monocytes # (A) 1.04 X 10*3/uL (0.20-1.00); Monocytes % (A) 12.6 %; NRBC Per 100 WBC 0 X 10*3/uL (0.00-0.01); Neutrophils % (A) 60.8 %; Platelet Count 173 X 10*3/uL (140-440); RBC 4.66 X 10*6/uL (4.40-5.60); RDW 12.4 % (11.5-14.5); WBC 8.24 X 10*3/uL (4.50-10.00)
[2024-09-27 12:27] LABS: ALT 136 U/L (10-49); AST 101 U/L (14-35); Albumin 4.4 g/dL (3.8-4.9); Albumin/Globulin Ratio 1.63 Ratio (1.60-3.17); Alkaline Phosphatase 57 U/L (41-126); BUN/Creat Ratio 12.33 Ratio (12.00-20.00); Blood Urea Nitrogen 7.4 mg/dL (9.0-27.0); Calcium 9.2 mg/dL (8.7-10.3); Carbon Dioxide 25.1 mmol/L (21.6-31.8); Chloride 101 mmol/L (96-109); Globulin 2.7 g/dL (1.6-3.3); Glucose 86 mg/dL (70-110); Potassium 3.8 mmol/L (3.5-5.5); Sodium 138 mmol/L (135-145); Total Bilirubin 1.5 mg/dL (0.3-1.2); Total Protein 7.1 g/dL (6.2-8.2)
--- NOTE | 2024-09-27 13:08 | P.DS ---
Providers Date of admission: 09/25/24 20:49 Expected date of discharge: 09/27/24 Attending physician: Abhinav Mccurdy MD [facility]: Final Diagnosis: #Alcohol intoxication, not in withdrawal #Alcohol use disorder #Hypernatremia, resolved #Transaminitis 2/2 alcohol abuse, stable Hospital Course: 33-year-old man with a PMH of renal stones, current everyday smoker, previous seizures and known alcohol use presents to the emergency department because he feels like he is starting to have alcohol withdrawals. Patient states he been drinking approximately 1/5 and a half of alcohol per day. He notes that his last drink was this afternoon at 4 PM, when he completed 1/5 of vodka. Additionally he notes that his most recent seizure was on Tuesday of last week. He states that he has attempted to quit drinking alcohol 56 times this year, and suffers from seizures each time. He is presenting today in an effort to get assistance in dealing with the seizures/withdrawal that he feels as though are imminent. He has no acute complaints at this time. Imaging in the ED showed EKG sinus rhythm with a rate of [address]-T changes good R wave progression QTc 450. On admission, Blood pressure 134/85, heart rate 105, respiratory rate 18, SpO2 98% on room air. Patient was evaluated for alcohol intoxication. Patient was given Ativan per CIWA protocol, placed on seizure and fall precautions, and placed on cardiac telemetry. Patient was also given daily thiamine and folic acid. Patient did not have any acute episodes of seizures or withdrawal symptoms throughout stay. Patient is discharged today with oral thiamine and advised to consider rehabilitation for substance abuse and to follow-up with PCP. Physical examination: Vital signs reviewed General: non toxic, no distress, appears at stated age Derm: no unusual rashes/lesions, warm Head: atraumatic, normocephalic, symmetric Eyes: EOMI, anicteric sclera, pupils equal round reactive to light ENT: Nose and ears atraumatic Neck: No cervical lymphadenopathy, trachea midline, supple Mouth: no lip lesion, mucus membranes moist Cardiovascular: S1S2 reg, no murmur Lungs: CTA bilateral, no rhonchi, no rales, no accessory muscle use Abdominal: soft, nondistended, nontender to palpation, no guarding Ext: muscle strength 5 out of 5 in all 4 extremities grossly, no gross muscle atrophy, no contractures, positive dorsalis pedis pulse bilateral, no edema Neuro: CN II-XI grossly intact, no gross focal neuro deficits Psych: Alert, oriented, appropriate affect and mood A total of 36 minutes of time were spent preparing this complex discharge summary. Patient was discharged on 09/27/2024 at 908. I have seen and evaluated the patient today. Discussed with the resident and agree with the residents finding and plan as documented in the resident's note. Changes highlighted in blue font. Patient Condition at Discharge: Stable Plan - Discharge Summary New Discharge Prescriptions: New Thiamine [Vitamin B-1] 100 mg PO DAILY #90 tab Discharge Medication List Thiamine [Vitamin B-1] 100 mg PO DAILY #90 tab 09/27/24 [Rx] Follow up Appointment(s)/Referral(s): Jumana Magallon MD [Primary Care Provider] - 1-2 days Patient Instructions/Handouts: Seizure/Epilepsy Discharge Instructions & Follow-Up Activity/Diet/Wound Care/Special Instructions: Please follow up with your PCP Discharge/Stand Alone Forms: AA Meetings [facility] [address] [facility] - [facility], AA Meetings [facility], Outpatient Counseling, Inp Substance Abuse Facilities Discharge Disposition: HOME SELF-CARE
== END 2024-09-27 10:57 | disposition home or self-care (01) ==
LOC: EC 18:35 → 6NMEDSUR 20:49
PROVIDERS: ADMIT Internal Medicine; ATTEND Internal Medicine
DX: F10.239 Alcohol dependence with withdrawal, unspecified (principal); F10.229 Alcohol dependence with intoxication, unspecified; E87.0 Hyperosmolality and hypernatremia; R74.01 Elevation of levels of liver transaminase levels; Z87.442 Personal history of urinary calculi; R56.9 Unspecified convulsions; F17.200 Nicotine dependence, unspecified, uncomplicated; Y90.8 Blood alcohol level of 240 mg/100 ml or more
CPT/HCPCS: 96376; 96361 ×2; 96374; 82075; 99285; 36415; 80053 ×3; 85025 ×3; 80320; G0378 ×3; S4990 ×2; J2060

== ENCOUNTER 2024-10-26 21:37 | Emergency (ER) | payer BC, OTHER ==
[2024-10-26 21:42] VITALS: TEMP 98.4
--- NOTE | 2024-10-26 21:59 | ED ---
Psych HPI - General Source: patient, EMS, RN notes reviewed Mode of arrival: EMS - History of Present Illness Onset/Timin -: days(s) <Miguel Aranda - Last Filed: 10/26/24 21:56> <Se Cotton - Last Filed: 10/26/24 22:37> <Alek Whitney - Last Filed: 10/27/24 14:46> - General Chief Complaint: Psychiatric Symptoms Stated Complaint: ETOH Time Seen by Provider: 10/26/24 21:49 - History of Present Illness Initial Comments: Note: This is a 33-year-old male with history of EtOH withdrawal presenting via EMS for "drinking too much today". Patient states he is having increased life stressors, stating he drank 1/5 of liquor today. Patient states he is hungry bu t otherwise denies any abdominal pain or nausea/vomiting. Denies visual/auditory hallucinations, significant mental health history or suicidal/homicidal ideation, stating he has 2 children and could not kill himself for their sake. (Miguel Aranda) - Related Data Home Medications Medication Instructions Recorded Confirmed No Known Home Medications 10/27/24 10/27/24 Allergies Allergy/AdvReac Type Severity Reaction Status Date / Time iodine Allergy Anaphylaxis Verified 10/27/24 11:39 shellfish derived [Shellfish] Allergy Anaphylaxis Verified 10/27/24 11:39 Review of Systems ROS Other: All systems not noted in ROS Statement are negative. <Miguel Aranda - Last Filed: 10/26/24 21:56> ROS Other: All systems not noted in ROS Statement are negative. <Se Cotton - Last Filed: 10/26/24 22:37> ROS Other: All systems not noted in ROS Statement are negative. <Alek Whitney - Last Filed: 10/27/24 14:46> ROS Statement: Those systems with pertinent positive or pertinent negative responses have been documented in the HPI. Past Medical History Additional Past Medical History / Comment(s): kidney stones, alcohol withdrawal seizures History of Any Multi-Drug Resistant Organisms: None Reported Past Surgical History: No Surgical Hx Reported Additional Past Surgical History / Comment(s): Stents in kidneys, lithotripsy Past Psychological History: No Psychological Hx Reported Smoking Status: Current every day smoker Past Alcohol Use History: Abuse, Daily, Heavy Past Drug Use History: Marijuana <Miguel Aranda - Last Filed: 10/26/24 21:56> General Exam Limitations: no limitations <Miguel Aranda - Last Filed: 10/26/24 21:56> Limitations: no limitations General appearance: alert, appears intoxicated Head exam: Present: atraumatic, normocephalic Eye exam: Present: normal appearance, PERRL, EOMI. Absent: scleral icterus, conjunctival injection, nystagmus Neck exam: Present: normal inspection Respiratory exam: Present: normal lung sounds bilaterally. Absent: respiratory distress, wheezes, rales, rhonchi, stridor, accessory muscle use Cardiovascular Exam: Present: regular rate, normal rhythm, normal heart sounds. Absent: systolic murmur, diastolic murmur, rubs, gallop GI/Abdominal exam: Present: soft. Absent: distended, tenderness, guarding, rebound, rigid, mass Extremities exam: Present: normal inspection, normal capillary refill. Absent: pedal edema, calf tenderness Back exam: Present: normal inspection. Absent: CVA tenderness (R), CVA tenderness (L) Neurological exam: Present: alert Skin exam: Present: warm, dry, intact, normal color. Absent: rash <Se Cotton - Last Filed: 10/26/24 22:37> - General Exam Comments Initial Comments: Visual Physical Exam Vital signs reviewed General: Well-appearing, nontoxic, no acute distress. Patient seated in wheelchair Head: Normocephalic, atraumatic Eyes: PERRLA, EOMI ENT: Airway patent Chest: Nonlabored breathing Skin: No visual rash, normal skin tone Neuro: Alert and oriented 3 Musculoskeletal: No gross abnormalities (Miguel Aranda) Course Vital Signs 10/26/24 10/27/24 21:39 12:09 Temperature 98.4 F Pulse Rate 73 74 Respiratory 18 17 Rate Blood Pressure 138/92 135/83 O2 Sat by Pulse 97 96 Oximetry Medical Decision Making <Miguel Aranda - Last Filed: 10/26/24 21:56> <Alek Whitney - Last Filed: 10/27/24 14:46> - Medical Decision Making I completed the quick note portion of this chart signed TANESHA Frank (Miguel Aranda) Patient signed out to me pending EPS evaluation for psychiatry. Patient was medically cleared by prior provider, Dr. Ta. Pending psychiatric evaluation. Patient was acutely intoxicated with alcohol. Upon sobriety, EPS evaluated the patient. Ned informed me that patient does not meet inpatient criteria. Patient will be discharged home at this time with safety plan. Patient in agreement this plan. Diagnosis/symptom? @ -Alcohol intoxication, encounter for psychiatric evaluation Acute, or Chronic, or Acute on Chronic? @ -Acute Uncomplicated (without systemic symptoms) or Complicated (systemic symptoms)? @ -uncomplicated Side effects of treatment? @ -None Exacerbation, Progression, or Severe Exacerbation] @ -No Poses a threat to life or bodily function? @ -Unlikely (Alek Whitney) - Lab Data Lab Results 10/27/24 Range/Units 06:52 Urine Opiates Screen Not Detected (NotDetected) Ur Oxycodone Screen Not Detected (NotDetected) Urine Methadone Screen Not Detected (NotDetected) Ur Barbiturates Screen Not Detected (NotDetected) U Tricyclic Antidepress Not Detected (NotDetected) Ur Phencyclidine Scrn Not Detected (NotDetected) Ur Amphetamines Screen Not Detected (NotDetected) U Methamphetamines Scrn Not Detected (NotDetected) U Benzodiazepines Scrn Detected H (NotDetected) Urine Cocaine Screen Not Detected (NotDetected) U Marijuana (THC) Screen Detected H (NotDetected) Disposition <Miguel Aranda - Last Filed: 10/26/24 21:56> <Se Cotton - Last Filed: 10/26/24 22:37> Is patient prescribed a controlled substance at d/c from ED?: No Time of Disposition: 12:00 <Alek Whitney - Last Filed: 10/27/24 14:46> Clinical Impression: Alcohol intoxication, Encounter for psychiatric assessment Disposition: HOME SELF-CARE Condition: Good Additional Instructions: follow safety plan Referrals: Jumana Magallon MD [Primary Care Provider] - 1-2 days
[2024-10-26] MEDS ORDERED: chlordiazePOXIDE 25 MG CAP PO PRN (22:36)
[2024-10-26] MEDS ORDERED: LORazepam 2 MG/ML INJ IV PRN ×2 (22:36)
[2024-10-26] MEDS: LORazepam 2 MG/ML INJ IV PRN (23:33)
[2024-10-26] MEDS: NICOTINE 21MG/24HR PATCH TRANSDERM STA (23:33)
[2024-10-27 07:31] LABS: Amphetamine Screen,Urine Not Detected (NotDetected); Barbiturate Screen,Urine Not Detected (NotDetected); Benzodiazepines Screen,Urine Detected (NotDetected); Cocaine Screen,Urine Not Detected (NotDetected); Methadone Screen, Urine Not Detected (NotDetected); Opiate Screen,Urine Not Detected (NotDetected); Oxycodone Screen, Urine Not Detected (NotDetected); Phencyclidine Screen,Urine Not Detected (NotDetected); Tricyclic Antidepressant,Urine Not Detected (NotDetected); Urn Cannabinoid Scrn Detected (NotDetected)
[2024-10-27] MEDS: THIAMINE 100 MG TAB PO SCH (10:42)
[2024-10-27 12:10] VITALS: BP 135/83; PULSE 74; RESP 17
== END 2024-10-27 12:20 | disposition home or self-care (01) ==
LOC: EC 21:37
DX: Z00.8 Encounter for other general examination (principal); F10.129 Alcohol abuse with intoxication, unspecified; F17.200 Nicotine dependence, unspecified, uncomplicated; Z91.041 Radiographic dye allergy status; Z91.013 Allergy to seafood
CPT/HCPCS: 82075; 80306; 99284; 96374; S4990; J2060

== ENCOUNTER 2024-12-29 14:38 | Emergency (ER) | payer BC, OTHER ==
[2024-12-29 14:48] VITALS: RESP 18; TEMP 98.2
[2024-12-29 15:28] LABS: Basophils % (A) 1 %; Eosinophils # (A) 0.1 k/uL (0-0.7); Eosinophils % (A) 2 %; HCT 48.4 % (39.0-53.0); HGB 15.8 gm/dL (13.0-17.5); Lymphocytes # (A) 1.3 k/uL (1.0-4.8); Lymphocytes % (A) 32 %; MCH 31.7 pg (25.0-35.0); MCHC 32.6 g/dL (31.0-37.0); MCV 97.3 fL (80.0-100.0); Mean Platelet Volume 7.8; Monocytes # (A) 0.2 k/uL (0-1.0); Monocytes % (A) 4 %; Neutrophils # (A) 2.5 k/uL (1.3-7.7); Neutrophils % (A) 59 %; Platelet Count 145 k/uL (150-450); RBC 4.97 m/uL (4.30-5.90); RDW 13.2 % (11.5-15.5); WBC 4.2 k/uL (3.8-10.6)
[2024-12-29 15:47] VITALS: BP 130/102; PULSE 91
[2024-12-29] MEDS: SODIUM CHLORIDE 0.9% 1,000 ML IV ONE (15:56)
--- NOTE | 2024-12-29 16:01 | ED ---
General Adult HPI - General Chief complaint: Alcohol Stated complaint: ETOH Time Seen by Provider: 12/29/24 14:54 Source: patient, RN notes reviewed, old records reviewed Mode of arrival: ambulatory Limitations: no limitations - History of Present Illness Initial comments: 34-year-old male presenting for acute alcohol intoxication, patient states he wishes to abstain from alcohol but has had alcohol withdrawal seizures in the past. Patient wishes to quit and has tried AA. He went to [employer] [facility] this morning and came immediately to the hospital for help. He reports the beginning of withdrawal symptoms. - Related Data Home Medications Medication Instructions Recorded Confirmed No Known Home Medications 10/27/24 12/29/24 Allergies Allergy/AdvReac Type Severity Reaction Status Date / Time iodine Allergy Anaphylaxis Verified 12/29/24 15:29 shellfish derived [Shellfish] Allergy Anaphylaxis Verified 12/29/24 15:29 Review of Systems ROS Statement: Those systems with pertinent positive or pertinent negative responses have been documented in the HPI. ROS Other: All systems not noted in ROS Statement are negative. Past Medical History Additional Past Medical History / Comment(s): kidney stones, alcohol withdrawal seizures History of Any Multi-Drug Resistant Organisms: None Reported Past Surgical History: No Surgical Hx Reported Additional Past Surgical History / Comment(s): Stents in kidneys, lithotripsy Past Psychological History: No Psychological Hx Reported Smoking Status: Current every day smoker Past Alcohol Use History: Abuse, Daily, Heavy Past Drug Use History: Marijuana General Exam Limitations: no limitations General appearance: alert, appears intoxicated, anxious Head exam: Present: atraumatic, normocephalic Eye exam: Present: normal appearance, PERRL ENT exam: Present: mucous membranes dry Neck exam: Present: normal inspection. Absent: tenderness, meningismus Respiratory exam: Present: normal lung sounds bilaterally. Absent: respiratory distress, wheezes Cardiovascular Exam: Present: regular rate, normal rhythm GI/Abdominal exam: Present: soft. Absent: distended, tenderness, guarding Extremities exam: Present: normal inspection, normal capillary refill Neurological exam: Present: alert, oriented X3, CN II-XII intact. Absent: motor sensory deficit Psychiatric exam: Present: anxious. Absent: suicidal ideation Skin exam: Present: warm, dry, intact Course Vital Signs 12/29/24 12/29/24 14:43 15:46 Temperature 98.2 F Pulse Rate 92 91 Respiratory 18 18 Rate Blood Pressure 139/89 130/102 O2 Sat by Pulse 96 96 Oximetry Medical Decision Making - Medical Decision Making Was pt. sent in by a medical professional or institution ([facility]uniga, RETAIL WORKER, urgent care, hospital, or assisted...) When possible be specific @ -No Did you speak to anyone other than the patient for history (EMS, parent, family, police, friend...)? What history was obtained from this source @ -No Did you review nursing and triage notes (agree or disagree)? Why? @ -I reviewed and agree with nursing and triage notes Were old charts reviewed (outside hosp., previous admission, EMS record, old EKG, old radiological studies, urgent care reports/EKG's, assisted records)? Report findings @ -No old charts were reviewed Differential Mental Health Depression, anxiety, bipolar, psychosis, schizophrenia, borderline personality, situational depression, adjustment disorder, behavioral disorder, brain tumor, malingering, substance abuse, encephalopathy, medication reaction, dementia, hypothyroidism, degenerative neurologic disorder, lupus.... This is not meant to be all-inclusive list EKG interpreted by me (3pts min.). @ -As above X-rays interpreted by me (1pt min.). @ -None done CT interpreted by me (1pt min.). @ -None done U/S interpreted by me (1pt. min.). @ -None done What testing was considered but not performed or refused? (CT, X-rays, U/S, labs)? Why? @ -None What meds were considered but not given or refused? Why? @ -None Did you discuss the management of the patient with other professionals (professionals i.e. [facility]ALL[facility] Zuniga, RETAIL WORKER, lab, RT, psych nurse, social group worker, sales department supervisor, teacher, consular officer, piano case maker)? Give summary @ -No Was smoking cessation discussed for >3mins.? @ -No Was critical care preformed (if so, how long)? @ -No Were there social determinants of health that impacted care today? How? (Homelessness, low income, unemployed, alcoholism, drug addiction, tra nsportation, low edu. Level, literacy, decrease access to med. care, senior living, rehab)? @ -No Was there de-escalation of care discussed even if they declined (Discuss DNR or withdrawal of care, Hospice)? DNR status @ -No What co-morbidities impacted this encounter? (DM, HTN, Smoking, COPD, CAD, Cancer, CVA, ARF, Chemo, Hep., AIDS, mental health diagnosis, sleep apnea, morbid obesity)? @ -None Was patient admitted / discharged? Hospital course, mention meds given and route, prescriptions, significant lab abnormalities, going to OR and other pertinent info. @Patient received an IV and laboratory testing. His alcohol level was 300. I had plan to admit this patient for detox and IV hydration. Patient eloped without my knowledge. Undiagnosed new problem with uncertain prognosis? @ -No Drug Therapy requiring intensive monitoring for toxicity (Heparin, Nitro, Insulin, Cardizem)? @ -No Were any procedures done? @ -No Diagnosis/symptom? @Alcohol intoxication, elopement Acute, or Chronic, or Acute on Chronic? @ -Acute on chronic Uncomplicated (without systemic symptoms) or Complicated (systemic symptoms)? @ -Default Side effects of treatment? @ -No Exacerbation, Progression, or Severe Exacerbation? @ -No Poses a threat to life or bodily function? How? (Chest pain, [place], [place], pneumonia, PE, COPD, DKA, ARF, appy, cholecystitis, CVA, Diverticulitis, Homicidal, Suicidal, threat to staff... and all critical care pts) @Yes, alcohol abuse, alcohol withdrawal - Lab Data Result diagrams: 12/29/24 15:20 12/29/24 15:57 Lab Results 12/29/24 12/29/24 Range/Units 15:20 15:57 WBC 4.2 (3.8-10.6) k/uL RBC 4.97 (4.30-5.90) m/uL Hgb 15.8 (13.0-17.5) gm/dL Hct 48.4 (39.0-53.0) % MCV 97.3 (80.0-100.0) fL MCH 31.7 (25.0-35.0) pg MCHC 32.6 (31.0-37.0) g/dL RDW 13.2 (11.5-15.5) % Plt Count 145 L (150-450) k/uL MPV 7.8 Neutrophils % 59 % Lymphocytes % 32 % Monocytes % 4 % Eosinophils % 2 % Basophils % 1 % Neutrophils # 2.5 (1.3-7.7) k/uL Lymphocytes # 1.3 (1.0-4.8) k/uL Monocytes # 0.2 (0-1.0) k/uL Eosinophils # 0.1 (0-0.7) k/uL Basophils # 0.0 (0-0.2) k/uL Sodium 144 (137-145) mmol/L Potassium 4.5 (3.5-5.1) mmol/L Chloride 101 (98-107) mmol/L Carbon Dioxide 26 (22-30) mmol/L Anion Gap 17 mmol/L BUN 11 (9-20) mg/dL Creatinine 0.52 L (0.66-1.25) mg/dL Est GFR (CKD-EPI)AfAm >90 (>60 ml/min/1.73 sqM) Est GFR (CKD-EPI)NonAf >90 (>60 ml/min/1.73 sqM) Glucose 117 H (74-99) mg/dL Calcium 9.2 (8.4-10.2) mg/dL Magnesium 1.9 (1.6-2.3) mg/dL Total Bilirubin 0.9 (0.2-1.3) mg/dL AST 147 H (17-59) U/L ALT 139 H (4-49) U/L Alkaline Phosphatase 63 (38-126) U/L Total Protein 8.8 H (6.3-8.2) g/dL Albumin 5.2 H (3.5-5.0) g/dL Serum Alcohol 302 H* mg/dL Disposition Clinical Impression: Alcoholic intoxication Disposition: LEFT AGAINST MEDICAL ADVICE Condition: Undetermined Is patient prescribed a controlled substance at d/c from ED?: No Referrals: None,Stated [Primary Care Provider] - 1-2 days Time of Disposition: 16:53
[2024-12-29 16:15] LABS: ALT 139 U/L (4-49); African American GFR (CKD) >90 (>60 ml/min/1.73 sqM); Albumin 5.2 g/dL (3.5-5.0); Anion Gap 17 mmol/L; Blood Urea Nitrogen 11 mg/dL (9-20); Calcium 9.2 mg/dL (8.4-10.2); Carbon Dioxide 26 mmol/L (22-30); Chloride 101 mmol/L (98-107); Glucose 117 mg/dL (74-99); Non-African American GFR(CKD) >90 (>60 ml/min/1.73 sqM); Sodium 144 mmol/L (137-145); Total Bilirubin 0.9 mg/dL (0.2-1.3); Total Protein 8.8 g/dL (6.3-8.2)
[2024-12-29 16:45] LABS: AST 147 U/L (17-59); Alcohol 302 mg/dL; Alkaline Phosphatase 63 U/L (38-126); Magnesium 1.9 mg/dL (1.6-2.3); Potassium 4.5 mmol/L (3.5-5.1)
== END 2024-12-29 16:55 | disposition left against medical advice (07) ==
LOC: EC 14:38
DX: F10.129 Alcohol abuse with intoxication, unspecified (principal); F17.200 Nicotine dependence, unspecified, uncomplicated; Z53.29 Procedure and treatment not carried out because of patient's decision for other reasons; Z91.041 Radiographic dye allergy status; Z91.013 Allergy to seafood; Y90.8 Blood alcohol level of 240 mg/100 ml or more
CPT/HCPCS: 36415; 80053; 80320; 83735; 85025; 96360; 99284

== ENCOUNTER 2025-03-07 20:53 | Emergency (ER) | payer OTHER ==
[2025-03-07 21:00] VITALS: RESP 18
[2025-03-07 21:04] LABS: Glucose,Whole Blood 108 mg/dL (70-110)
--- NOTE | 2025-03-07 21:18 | ED ---
Seizure HPI - General Chief Complaint: Seizure Stated Complaint: Seizure Time Seen by Provider: 03/07/25 21:08 Source: patient, EMS Mode of arrival: EMS Limitations: no limitations - History of Present Illness Initial Comments: This patient is a 34-year-old man who presents to have evaluation after having had a seizure. He does have a history of previous seizures when he has stopped drinking. The patient states he had been drinking up until Tuesday when he quit. The patient states that he was feeling a little off, a coworker noticed that he was behaving funny and they lowered him to the ground. There was no trauma. The patient did notice that he has a bruise to the posterior aspect of his left elbow. Currently denies other symptoms. MD Complaint: seizure -: minutes(s) Description of Episode: loss of consciousness, tonic-clonic movement -: second(s) Witnessed: yes - by bystander Seizure History: history of withdrawal seizures Place: work Possible Precipitating Event: alcohol withdrawal Associated Symptoms: denies other symptoms Treatments Prior to Arrival: none - Related Data Home Medications Medication Instructions Recorded Confirmed No Known Home Medications 10/27/24 12/29/24 Allergies Allergy/AdvReac Type Severity Reaction Status Date / Time iodine Allergy Anaphylaxis Verified 03/07/25 21:00 shellfish derived [Shellfish] Allergy Anaphylaxis Verified 03/07/25 21:00 Review of Systems ROS Statement: Those systems with pertinent positive or pertinent negative responses have been documented in the HPI. ROS Other: All systems not noted in ROS Statement are negative. Constitutional: Denies: fever, chills, weakness Respiratory: Denies: cough, dyspnea Cardiovascular: Denies: chest pain, palpitations, edema Gastrointestinal: Denies: abdominal pain, nausea, vomiting, diarrhea Genitourinary: Denies: dysuria, hematuria Musculoskeletal: Denies: back pain Skin: Denies: rash Neurological: Denies: headache, weakness, numbness, confusion Past Medical History Additional Past Medical History / Comment(s): kidney stones, alcohol withdrawal seizures History of Any Multi-Drug Resistant Organisms: None Reported Past Surgical History: No Surgical Hx Reported Additional Past Surgical History / Comment(s): Stents in kidneys, lithotripsy Past Psychological History: No Psychological Hx Reported Smoking Status: Current every day smoker Past Alcohol Use History: Abuse, Daily, Heavy Past Drug Use History: Marijuana General Exam Limitations: no limitations General appearance: alert, in no apparent distress Head exam: Present: atraumatic, normocephalic Eye exam: Present: normal appearance. Absent: scleral icterus, conjunctival injection ENT exam: Present: normal oropharynx Neck exam: Present: normal inspection, full ROM. Absent: tenderness, meningismus Respiratory exam: Present: normal lung sounds bilaterally. Absent: respiratory distress, wheezes, rales, rhonchi, stridor, chest wall tenderness, accessory muscle use Cardiovascular Exam: Present: regular rate, normal rhythm, normal heart sounds. Absent: systolic murmur, diastolic murmur, rubs, gallop GI/Abdominal exam: Present: soft, organomegaly (Borderline hepatomegaly). Absent: distended, tenderness, guarding, rebound, rigid, mass Extremities exam: Present: normal inspection, full ROM, normal capillary refill, other (Contusion posterior aspect left elbow). Absent: pedal edema, calf tende rness Back exam: Present: normal inspection. Absent: CVA tenderness (R), CVA tenderness (L) Neurological exam: Present: alert, oriented X3, CN II-XII intact. Absent: motor sensory deficit Skin exam: Present: warm, dry, intact, normal color. Absent: rash Course Vital Signs 03/07/25 03/07/25 20:54 23:12 Temperature 99.0 F 98.9 F Pulse Rate 93 96 Respiratory 18 18 Rate Blood Pressure 137/80 129/96 O2 Sat by Pulse 98 98 Oximetry Medical Decision Making - Medical Decision Making Was pt. sent in by a medical professional or institution (, PA, VISION REHABILITATION THERAPIST, urgent care, hospital, or usp...) When possible be specific @ -[No] Did you speak to anyone other than the patient for history (EMS, parent, family, police, friend...)? What history was obtained from this source @ -[No] Did you review nursing and triage notes (agree or disagree)? Why? @ -[I reviewed and agree with nursing and triage notes] Were old charts reviewed (outside hosp., previous admission, EMS record, old EKG, old radiological studies, urgent care reports/EKG's, usp records)? Report findings @ -[No old charts were reviewed] Differential Diagnosis (chest pain, altered mental status, abdominal pain women, abdominal pain men, vaginal bleeding, weakness, fever, dyspnea, syncope, headache, dizziness, GI bleed, back pain, seizure, CVA, palpatations, mental health, musculoskeletal)? @ -Differential Seizure: Recurrent seizure disorder, febrile seizure, alcohol withdrawal, stimulants, meningitis, encephalitis, intercranial hemorrhage, intracranial tumor, stroke, eclampsia, thyrotoxicosis, hypocalcemia, hyponatremia, hypernatremia, hypomagnesemia, psychogenic, this is not meant to be an all-inclusive list. EKG interpreted by me (3pts min.). @ -[As above] X-rays interpreted by me (1pt min.). @ -[None done] CT interpreted by me (1pt min.). @ -[None done] U/S interpreted by me (1pt. min.). @ -[None done] What testing was considered but not performed or refused? (CT, X-rays, U/S, labs)? Why? @ -[None] What meds were considered but not given or refused? Why? @ -[None] Did you discuss the management of the patient with other professionals (professionals i.e. , PA, VISION REHABILITATION THERAPIST, lab, RT, psych nurse, social services specialist, warp dyeing vat tender, teacher, housing management officer, hospice case manager)? Give summary @ -[No] Was smoking cessation discussed for >3mins.? @ -[No] Was critical care preformed (if so, how long)? @ -[No] Were there social determinants of health that impacted care today? How? (Homelessness, low income, unemployed, alcoholism, drug addiction, transportation, low edu. Level, literacy, decrease access to med. care, nursing home, rehab)? @ -[No] Was there de-escalation of care discussed even if they declined (Discuss DNR or withdrawal of care, Hospice)? DNR status @ -[No] What co-morbidities impacted this encounter? (DM, HTN, Smoking, COPD, CAD, Cancer, CVA, ARF, Chemo, Hep., AIDS, mental health diagnosis, sleep apnea, morbid obesity)? @ -[Alcohol abuse Was patient admitted / discharged? Hospital course, mention meds given and route, prescriptions, significant lab abnormalities, going to OR and other per tinent info. @ -[Patient is 34-year-old man with history of previous seizures related to alcohol withdrawal. He has recently stopped drinking and did have uncomplicated seizure. Patient returned to baseline. Discussed alcohol cessation, further care and appropriate follow-up. Will give short course of benzodiazepine Undiagnosed new problem with uncertain prognosis? @ -[No] Drug Therapy requiring intensive monitoring for toxicity (Heparin, Nitro, Insulin, Cardizem)? @ -[No] Were any procedures done? @ -[No] Diagnosis/symptom? @ -[Generalized tonic-clonic seizure Acute, or Chronic, or Acute on Chronic? @ -[Acute Uncomplicated (without systemic symptoms) or Complicated (systemic symptoms)? @ -Uncomplicated Side effects of treatment? @ -[No] Exacerbation, Progression, or Severe Exacerbation? @ -[No] Poses a threat to life or bodily function? How? (Chest pain, [place], [place], pneumonia, PE, COPD, DKA, ARF, appy, cholecystitis, CVA, Diverticulitis, Homicidal, Suicidal, threat to staff... and all critical care pts) @ -[No] All treatments are based on ideal body weight as in ED triage - Lab Data Result diagrams: 03/07/25 20:57 03/07/25 20:57 Lab Results 03/07/25 03/07/25 03/07/25 Range/Units 20:57 20:57 21:02 WBC 7.59 (4.50-10.00) 10*3/uL RBC 4.10 L (4.40-5.60) 10*6/uL Hgb 13.5 (13.0-17.0) g/dL Hct 38.5 L (39.6-50.0) % MCV 93.9 (80.0-97.0) fL MCH 32.9 H (27.0-32.0) pg MCHC 35.1 (32.0-37.0) g/dL Plt Count 151 (140-440) 10*3/uL MPV 9.8 (9.5-12.2) fL Immature Gran % (Auto) 0.3 % Neutrophils % 54.7 % Lymphocytes % 29.9 % Monocytes % 13.7 % Eosinophils % 0.7 % Basophils % 0.7 % Immature Gran # 0.02 (0.00-0.04) 10*3/uL Neutrophils # 4.16 (1.80-7.70) 10*3/uL Lymphocytes # 2.27 (0.90-5.00) 10*3/uL Monocytes # 1.04 H (0.20-1.00) 10*3/uL Eosinophils # 0.05 (0.04-0.35) 10*3/uL Basophils # 0.05 (0.00-0.10) 10*3/uL Sodium 137 (137-145) mmol/L Potassium 3.3 L (3.5-5.1) mmol/L Chloride 101 (98-107) mmol/L Carbon Dioxide 21 L (22-30) mmol/L Anion Gap 15 mmol/L BUN 11 (9-20) mg/dL Creatinine 0.55 L (0.66-1.25) mg/dL Est GFR (CKD-EPI)AfAm >90 (>60 ml/min/1.73 sqM) Est GFR (CKD-EPI)NonAf >90 (>60 ml/min/1.73 sqM) Glucose 112 H (74-99) mg/dL POC Glucose (mg/dL) 108 (70-110) mg/dL POC Glu Brand Strategy Manager ID Hollis Nav Calcium 9.4 (8.4-10.2) mg/dL Magnesium 1.6 (1.6-2.3) mg/dL Total Bilirubin 1.0 (0.2-1.3) mg/dL AST 43 (17-59) U/L ALT 38 (4-49) U/L Alkaline Phosphatase 61 (38-126) U/L Total Protein 7.4 (6.3-8.2) g/dL Albumin 4.6 (3.5-5.0) g/dL - EKG Data -: EKG Interpreted by Ar EKG shows normal: sinus rhythm, axis (Normal), intervals (Normal), QRS complexes (Possible incomplete right bundle branch block.), ST-T waves (Normal) Rate: normal (Rate 90 bpm) Disposition Clinical Impression: Generalized seizure, Hypokalemia Disposition: HOME SELF-CARE Condition: Good Instructions (If sedation given, give patient instructions): Seizure/Epilepsy Discharge Instructions & Follow-Up Is patient prescribed a controlled substance at d/c from ED?: No Referrals: None,Stated [Primary Care Provider] - 1-2 days
[2025-03-07] MEDS: chlordiazePOXIDE 25 MG CAP PO STA (21:22)
[2025-03-07 21:23] LABS: Basophils # (A) 0.05 10*3/uL (0.00-0.10); Basophils % (A) 0.7 %; Eosinophils # (A) 0.05 10*3/uL (0.04-0.35); Eosinophils % (A) 0.7 %; HCT 38.5 % (39.6-50.0); HGB 13.5 g/dL (13.0-17.0); Lymphocytes # (A) 2.27 10*3/uL (0.90-5.00); Lymphocytes % (A) 29.9 %; MCH 32.9 pg (27.0-32.0); MCHC 35.1 g/dL (32.0-37.0); MCV 93.9 fL (80.0-97.0); Mean Platelet Volume 9.8 fL (9.5-12.2); Monocytes # (A) 1.04 10*3/uL (0.20-1.00); Monocytes % (A) 13.7 %; Neutrophils # (A) 4.16 10*3/uL (1.80-7.70); Neutrophils % (A) 54.7 %; Platelet Count 151 10*3/uL (140-440); RDW 13.9 % (11.5-14.5); WBC 7.59 10*3/uL (4.50-10.00)
[2025-03-07 21:38] LABS: ALT 38 U/L (4-49); AST 43 U/L (17-59); African American GFR (CKD) >90 (>60 ml/min/1.73 sqM); Albumin 4.6 g/dL (3.5-5.0); Alkaline Phosphatase 61 U/L (38-126); Anion Gap 15 mmol/L; Blood Urea Nitrogen 11 mg/dL (9-20); Calcium 9.4 mg/dL (8.4-10.2); Carbon Dioxide 21 mmol/L (22-30); Chloride 101 mmol/L (98-107); Glucose 112 mg/dL (74-99); Magnesium 1.6 mg/dL (1.6-2.3); Non-African American GFR(CKD) >90 (>60 ml/min/1.73 sqM); Potassium 3.3 mmol/L (3.5-5.1); Sodium 137 mmol/L (137-145); Total Protein 7.4 g/dL (6.3-8.2)
[2025-03-07] MEDS: POTASSIUM CHLORIDE ER 20 MEQ TAB.ER PO STA (23:07)
[2025-03-07 23:17] VITALS: BP 129/96; PULSE 96; TEMP 98.9
== END 2025-03-07 23:17 | disposition home or self-care (01) ==
LOC: EC 20:53
DX: G40.409 Other generalized epilepsy and epileptic syndromes, not intractable, without status epilepticus (principal); E87.6 Hypokalemia; F10.139 Alcohol abuse with withdrawal, unspecified; F17.200 Nicotine dependence, unspecified, uncomplicated; Z91.041 Radiographic dye allergy status; Z91.013 Allergy to seafood
CPT/HCPCS: 36415; 80053; 83735; 85025; 93005; 99284

== ENCOUNTER 2025-04-05 21:17 | Inpatient (IN) | payer OTHER ==
[2025-04-05] MEDS ORDERED: LORazepam 1 MG/0.5 ML VIAL IV PRN ×3 (21:46)
[2025-04-05 22:11] LABS: Basophils # (A) 0.06 10*3/uL (0.00-0.10); Basophils % (A) 1.2 %; HCT 44.4 % (39.6-50.0); HGB 15.3 g/dL (13.0-17.0); Lymphocytes # (A) 1.11 10*3/uL (0.90-5.00); Lymphocytes % (A) 22.5 %; MCH 32.9 pg (27.0-32.0); MCHC 34.5 g/dL (32.0-37.0); MCV 95.5 fL (80.0-97.0); Mean Platelet Volume 8.9 fL (9.5-12.2); Monocytes # (A) 0.26 10*3/uL (0.20-1.00); Monocytes % (A) 5.3 %; Neutrophils # (A) 3.49 10*3/uL (1.80-7.70); Neutrophils % (A) 70.8 %; Platelet Count 256 10*3/uL (140-440); RBC 4.65 10*6/uL (4.40-5.60); RDW 14.5 % (11.5-14.5); WBC 4.93 10*3/uL (4.50-10.00)
--- NOTE | 2025-04-05 22:14 | ED ---
General Adult HPI - General Chief complaint: Alcohol Stated complaint: alcoholic - needs meds for seizures Time Seen by Provider: 04/05/25 21:31 Source: patient Mode of arrival: ambulatory Limitations: no limitations - History of Present Illness Initial comments: Dictation was produced using [employer] dictation software. please excuse any grammatical, word or spelling errors. Chief Complaint: 34-year-old male with alcohol withdrawal History of Present Illness: 34-year-old alcoholic male presents to the ER for alcohol withdrawal. Patient states his last drink was 4:30 PM. States that he is feeling tremulous and having a what he describes as out of body experience. Patient has had severe alcohol withdrawals in the past including alcohol withdr awal seizures. Motivated to quit. Denies any abdominal pain. The ROS documented in this emergency department record has been reviewed and confirmed by me. Those systems with pertinent positive or negative responses have been documented in the HPI. All other systems are other negative and/or no ncontributory. - Related Data Home Medications Medication Instructions Recorded Confirmed No Known Home Medications 10/27/24 12/29/24 Allergies Allergy/AdvReac Type Severity Reaction Status Date / Time iodine Allergy Anaphylaxis Verified 04/05/25 21:25 shellfish derived [Shellfish] Allergy Anaphylaxis Verified 04/05/25 21:25 Review of Systems ROS Statement: Those systems with pertinent positive or pertinent negative responses have been documented in the HPI. ROS Other: All systems not noted in ROS Statement are negative. Past Medical History Additional Past Medical History / Comment(s): kidney stones, alcohol withdrawal seizures History of Any Multi-Drug Resistant Organisms: None Reported Past Surgical History: No Surgical Hx Reported Additional Past Surgical History / Comment(s): Stents in kidneys, lithotripsy Past Psychological History: No Psychological Hx Reported Smoking Status: Current every day smoker Past Alcohol Use History: Abuse, Daily, Heavy Past Drug Use History: Marijuana General Exam - General Exam Comments Initial Comments: PHYSICAL EXAM: General Impression: Alert and oriented x3, tremulous HEENT: Normocephalic atraumatic, extra-ocular movements intact, pupils equal and reactive to light bilaterally, mucous membranes moist. Cardiovascular: Heart regular rate and rhythm Chest: Able to complete full sentences, no retractions, no tachypnea Abdomen: abdomen soft, non-tender, non-distended, no organomegaly Musculoskeletal: Pulses present and equal in all extremities, no peripheral edema Motor: no focal deficits noted Neurological: CN II-XII grossly intact, no focal motor or sensory deficits noted Skin: Intact with no visualized rashes Psych: Normal affect and mood Limitations: no limitations Course Vital Signs 04/05/25 21:23 Temperature 97.9 F Pulse Rate 98 Respiratory 18 Rate Blood Pressure 145/81 O2 Sat by Pulse 96 Oximetry EKG Findings - EKG Comments: EKG Findings:: My EKG interpretation: Ventricular rate 97, sinus rhythm, WV 130, QRS 90, QTc 395. No WV prolongation, no QTC prolongation, no ST or T-wave changes noted. Overall, this EKG is unremarkable Medical Decision Making - Medical Decision Making Was pt. sent in by a medical professional or institution (, PA, BIOMASS PLANT TECHNICIAN, urgent care, hospital, or senior care...) When possible be specific @ -No Did you speak to anyone other than the patient for history (EMS, parent, family, police, friend...)? What history was obtained from this source @ -No Did you review nursing and triage notes (agree or disagree)? Why? @ -I reviewed and agree with nursing and triage notes Were old charts reviewed (outside hosp., previous admission, EMS record, old E KG, old radiological studies, urgent care reports/EKG's, senior care records)? Report findings @ -No old charts were reviewed Differential Diagnosis (chest pain, altered mental status, abdominal pain women, abdominal pain men, vaginal bleeding, musculoskeletal, weakness, fever, dyspnea, syncope, headache, dizziness, GI bleed, back pain, seizure, CVA, palpatations, mental health)? @ -Differential Seizure: Recurrent seizure disorder, febrile seizure, alcohol withdrawal, stimulants, meningitis, encephalitis, intercranial hemorrhage, intracranial tumor, stroke, eclampsia, thyrotoxicosis, hypocalcemia, hyponatremia, hypernatremia, hypomagnesemia, psychogenic, this is not meant to be an all-inclusive list. EKG interpreted by me (3pts min.). @ -See above X-rays interpreted by me (1pt min.). @ -None done CT interpreted by me (1pt min.). @ -None done U/S interpreted by me (1pt. min.). @ -None done What testing was considered but not performed or refused? (CT, X-rays, U/S, labs)? Why? @ -None What meds were considered but not given or refused? Why? @ -None Was smoking cessation discussed for >3mins.? @ -No Were there social determinants of health that impacted care today? How? (Homelessness, low income, unemployed, alcoholism, drug addiction, transportation, low edu. Level, literacy, decrease access to med. care, group home, rehab)? @ -Alcohol dependence Was there de-escalation of care discussed even if they declined (Discuss DNR or withdrawal of care, Hospice)? DNR status @ -No What co-morbidities impacted this encounter? (DM, HTN, Smoking, COPD, CAD, Cancer, CVA, ARF, Chemo, Hep., AIDS, mental health diagnosis, sleep apnea, morbid obesity)? @ -None Was patient admitted / discharged? Hospital course, mention meds given and route, prescriptions, significant lab abnormalities, going to OR and other pertinent info. @ -34-year-old alcoholic male presents emergency department for early onset symptoms of alcohol withdrawal. Patient states that he has alcohol withdrawal seizures. Patient high risk. Vital signs upon arrival are within acceptable limits. Labs unremarkable will be admitted for inpatient alcohol withdrawal treatment. Serum alcohol level is 266. Did you discuss the management of the patient with other professionals (professionals i.e. , PA, BIOMASS PLANT TECHNICIAN, lab, RT, psych nurse, social service technician, operations research director, teacher, security flex officer, case supervisor)? Give summary @ -Case discussed with hospitalist for admission Was critical care preformed (if so, how long)? @ -No Undiagnosed new problem with uncertain prognosis? @ -No Drug Therapy requiring intensive monitoring for toxicity (Heparin, Nitro, Insulin, Cardizem)? @ -No Were any procedures done? @ -No Diagnosis/symptom? Acute, or Chronic, or Acute on Chronic? Uncomplicated (without systemic symptoms) or Complicated (systemic symptoms)? @ -Alcohol withdrawal Side effects of treatment? @ -No Exacerbation, Progression, or Severe Exacerbation? @ -No Poses a threat to life or bodily function? How? (Chest pain, [place], [place], pneumonia, PE, COPD, DKA, ARF, appy, cholecystitis, CVA, Diverticulitis, Homicidal, Suicidal, threat to staff... and all critical care pts) @ -yes - Lab Data Result diagrams: 04/05/25 22:04 04/05/25 22:04 Lab Results 04/05/25 04/05/25 Range/Units 22:04 22:04 WBC 4.93 (4.50-10.00) 10*3/uL RBC 4.65 (4.40-5.60) 10*6/uL Hgb 15.3 (13.0-17.0) g/dL Hct 44.4 (39.6-50.0) % MCV 95.5 (80.0-97.0) fL MCH 32.9 H (27.0-32.0) pg MCHC 34.5 (32.0-37.0) g/dL Plt Count 256 (140-440) 10*3/uL MPV 8.9 L (9.5-12.2) fL Immature Gran % (Auto) 0.2 % Neutrophils % 70.8 % Lymphocytes % 22.5 % Monocytes % 5.3 % Eosinophils % 0.0 % Basophils % 1.2 % Immature Gran # 0.01 (0.00-0.04) 10*3/uL Neutrophils # 3.49 (1.80-7.70) 10*3/uL Lymphocytes # 1.11 (0.90-5.00) 10*3/uL Monocytes # 0.26 (0.20-1.00) 10*3/uL Eosinophils # 0.00 L (0.04-0.35) 10*3/uL Basophils # 0.06 (0.00-0.10) 10*3/uL Sodium 142 (137-145) mmol/L Potassium 4.5 (3.5-5.1) mmol/L Chloride 101 (98-107) mmol/L Carbon Dioxide 27 (22-30) mmol/L Anion Gap 14 mmol/L BUN 15 (9-20) mg/dL Creatinine 0.64 L (0.66-1.25) mg/dL Est GFR (CKD-EPI)AfAm >90 (>60 ml/min/1.73 sqM) Est GFR (CKD-EPI)NonAf >90 (>60 ml/min/1.73 sqM) Glucose 174 H (74-99) mg/dL Calcium 9.4 (8.4-10.2) mg/dL Magnesium 1.7 (1.6-2.3) mg/dL Total Bilirubin 0.6 (0.2-1.3) mg/dL AST 70 H (17-59) U/L ALT 109 H (4-49) U/L Alkaline Phosphatase 55 (38-126) U/L Total Protein 7.8 (6.3-8.2) g/dL Albumin 4.7 (3.5-5.0) g/dL Serum Alcohol 266 H* mg/dL Disposition Clinical Impression: Alcohol withdrawal Disposition: ADMITTED IP TO THIS HOSP Condition: Fair Referrals: None,Stated [Primary Care Provider] - 1-2 days Decision Time: 23:58
[2025-04-05 23:21] LABS: ALT 109 U/L (4-49); African American GFR (CKD) >90 (>60 ml/min/1.73 sqM); Albumin 4.7 g/dL (3.5-5.0); Anion Gap 14 mmol/L; Blood Urea Nitrogen 15 mg/dL (9-20); Calcium 9.4 mg/dL (8.4-10.2); Carbon Dioxide 27 mmol/L (22-30); Chloride 101 mmol/L (98-107); Glucose 174 mg/dL (74-99); Non-African American GFR(CKD) >90 (>60 ml/min/1.73 sqM); Sodium 142 mmol/L (137-145); Total Bilirubin 0.6 mg/dL (0.2-1.3); Total Protein 7.8 g/dL (6.3-8.2)
[2025-04-05 23:37] LABS: Alcohol 266 mg/dL; Potassium 4.5 mmol/L (3.5-5.1)
[2025-04-05 23:38] LABS: AST 70 U/L (17-59); Alkaline Phosphatase 55 U/L (38-126); Magnesium 1.7 mg/dL (1.6-2.3)
[2025-04-05] MEDS ORDERED: NALOXONE 0.4 MG/ML 1 ML VIAL IV PRN (23:56)
[2025-04-06] MEDS: SODIUM CHLORIDE 0.9% 1,000 ML IV SCH (00:16)
[2025-04-06] MEDS: NICOTINE 21MG/24HR PATCH TRANSDERM STA (00:20)
--- NOTE | 2025-04-06 00:28 | P.HPIM ---
History of Present Illness H&P Date: 04/05/25 Patient is a 34-year-old male with past medical history of alcohol abuse, tobacco use disorder, nephrolithiasis, history of alcohol withdrawal seizure, who presented to the ER for alcohol withdrawal treatment. Patient has prior history of alcohol withdrawal admission. He drinks approximat carlos 1/5of alcohol per day. Last drink was today at 4:30 PM. He feels tremor, sweating. He has 2 babies 3 and a 5 years old, he seems to be motivated to quit drinking. In the ER he was afebrile, blood pressure elevated 145/81, satting well on room air. Blood work revealed normal WBC count and hemoglobin, sodium and potassium WNL, creatinine 0.64, glucose elevated 174, AST and ALT elevated 70 and 109 up accordingly, previously had elevated AST as well. Alcohol level 266. EKG showed sinus tachycardia, QTc 395. Pertinent positives and negatives as discussed in HPI, a complete review of systems was performed and all other systems are negative. Patient seen and examined at bedside. Vital signs reviewed General: Alcohol intoxication, no distress, appears at stated age Derm: warm, dry Head: atraumatic, normocephalic, symmetric Eyes: EOMI, no lid lag, anicteric sclera, pupils equal round reactive to light ENT: Nose and ears atraumatic Neck: No thyromegaly, supple Mouth: no lip lesion, mucus membranes moist Cardiovascular: S1S2 reg, no murmur, no edema Lungs: clear to auscultation bilateral, no rhonchi, no rales, no wheeze, no accessory muscle use Abdominal: soft, nontender to palpation, no guarding, no appreciable organomegaly Ext: no gross muscle atrophy, muscle strength muscle strength 5 out of 5 in all 4 extremities, no contractures Neuro: CN II-XII grossly intact, upper extremity tremors Psych: Alert, oriented, appropriate affect Assessment/Plan: Alcohol intoxication Alcohol withdrawal History of alcohol withdrawal seizure Alcohol use disorder Tobacco dependence - [facility] protocol with Ativan - Given history of severe withdrawal, will provide with gram taper Librium loading 100 once followed by taper 50 mg every 6 hours for 1 day then 50 mg every 8 hours for 1 day, then adjust based on symptoms control, continuefolic acid 1 mg oral, thiamine 100 mg oral, multivitamins - Seizure precautions - Will consult social work - Patient is interested in quitting -Counseled on smoking cessation Elevated liver enzymes, likely secondary to alcohol use -Recheck CMP in the morning, no abdominal pain The patient is admitted with an anticipated greater than 2 midnight stay as inpatient status for evaluation of alcohol withdrawal. CODE STATUS: Full code DVT prophylaxis: SCD Anticipated discharge date: TBD Anticipated discharge place: [facility] A total of 40 minutes was spent on the care of this complex patient more than 50% of the time was spent in counseling and care coordination. Past Medical History Additional Past Medical History / Comment(s): kidney stones, alcohol withdrawal seizures History of Any Multi-Drug Resistant Organisms: None Reported Past Surgical History: No Surgical Hx Reported Additional Past Surgical History / Comment(s): Stents in kidneys, lithotripsy Past Psychological History: No Psychological Hx Reported Smoking Status: Current every day smoker Past Alcohol Use History: Abuse, Daily, Heavy Past Drug Use History: Marijuana Medications and Allergies Home Medications Medication Instructions Recorded Confirmed Type No Known Home Medications 10/27/24 12/29/24 History Allergies Allergy/AdvReac Type Severity Reaction Status Date / Time iodine Allergy Anaphylaxis Verified 04/05/25 21:25 shellfish derived [Shellfish] Allergy Anaphylaxis Verified 04/05/25 21:25 Physical Exam Vitals: Vital Signs Temp Pulse Resp BP Pulse Ox 04/05/25 21:23 97.9 F 98 18 145/81 96 Intake and Output 04/05/25 04/05/25 04/06/25 14:59 22:59 06:59 Other: Weight 77.111 kg Results CBC & Chem 7: 04/05/25 22:04 04/05/25 22:04 Labs: Abnormal Lab Results - Last 24 Hours (Table) 04/05/25 04/05/25 Range/Units 22:04 22:04 MCH 32.9 H (27.0-32.0) pg MPV 8.9 L (9.5-12.2) fL Eosinophils # 0.00 L (0.04-0.35) 10*3/uL Creatinine 0.64 L (0.66-1.25) mg/dL Glucose 174 H (74-99) mg/dL AST 70 H (17-59) U/L ALT 109 H (4-49) U/L Serum Alcohol 266 H* mg/dL
[2025-04-06] MEDS: chlordiazePOXIDE 25 MG CAP PO STA (00:45)
[2025-04-06] MEDS: chlordiazePOXIDE 25 MG CAP PO SCH (06:40)
[2025-04-06 07:30] LABS: ALT 96 U/L (4-49); AST 49 U/L (17-59); African American GFR (CKD) >90 (>60 ml/min/1.73 sqM); Albumin/Globulin Ratio 1.4; Alkaline Phosphatase 55 U/L (38-126); Anion Gap 10 mmol/L; Blood Urea Nitrogen 9 mg/dL (9-20); Carbon Dioxide 27 mmol/L (22-30); Chloride 102 mmol/L (98-107); Globulin 2.9 g/dL; Glucose 87 mg/dL (74-99); Non-African American GFR(CKD) >90 (>60 ml/min/1.73 sqM); Potassium 3.6 mmol/L (3.5-5.1); Sodium 139 mmol/L (137-145); Total Bilirubin 0.6 mg/dL (0.2-1.3); Total Protein 6.9 g/dL (6.3-8.2)
--- NOTE | 2025-04-06 09:15 | P.PN ---
Subjective Progress Note Date: 04/06/25 Hospital Course: Patient is a 34-year-old male with past medical history of alcohol abuse, toba portfolio accountant use disorder, nephrolithiasis, history of alcohol withdrawal seizure, who presented to the ER for alcohol withdrawal treatment. Patient has prior history of alcohol withdrawal admission. He drinks approximately 1/5of alcohol per day. Last drink was today at 4:30 PM. He feels tremor, sweating. He has 2 babies 3 and a 5 years old, he seems to be motivated to quit drinking. In the ER he was afebrile, blood pressure elevated 145/81, satting well on room air. Blood work revealed normal WBC count and hemoglobin, sodium and potassium WNL, creatinine 0.64, glucose elevated 174, AST and ALT elevated 70 and 109 up accordingly, previously had elevated AST as well.Alcohol level 266. EKG showed sinus tachycardia, QTc 395. Admitted for further management of alcohol intoxication, withdrawal, started on CIWA with Ativan and Librium taper. 04/06: Seen and examined in the ER, feeling better, somewhat shaky otherwise no complaints, continue current management. AST normalized, ALT trending down 96, otherwise CMP unremarkable. Pertinent positives and negatives as discussed above, a complete review of systems was performed and all other systems are negative. Vitals Signs Reviewed. General: [nontoxic], [no distress], [appears at stated age] Derm: [warm], [dry] Head: [atraumatic], [normocephalic], [symmetric] Eyes: [EOMI], [no lid lag], [anicteric sclera] Mouth: [no lip lesion], [mucus membranes moist] Cardiovascular: [S1S2 reg], [no murmur] Lungs: [CTA bilateral], [no rhonchi, no rales] , [no accessory muscle use] Abdominal: [soft], [ nontender to palpation], [no guarding], [no appreciable organomegaly] Ext: [no gross muscle atrophy], [no edema], [no contractures] Neuro: [ CN II-XI grossly intact], [no focal neuro deficits] Psych: [Alert], [oriented], [appropriate affect] Assessment and Plan:Alcohol intoxication Alcohol withdrawal History of alcohol withdrawal seizure Alcohol use disorder Tobacco dependence - CIWA protocol with Ativan - Given history of severe withdrawal, will provide with gram taper Librium loading 100 once followed by taper 50 mg every 6 hours for 1 day then 50 mg every 8 hours for 1 day, then adjust based on symptoms control, continuefolic acid 1 mg oral, thiamine 100 mg oral, multivitamins - Seizure precautions - Will consult social work - Patient is interested in quitting -Counseled on smoking cessation Elevated liver enzymes, likely secondary to alcohol use -improving CODE STATUS: Full code DVT prophylaxis: SCD Anticipated discharge date: TBD Anticipated discharge place: D Objective - Vital Signs Vital signs: Vital Signs Temp 97.9 F 04/05/25 21:23 Pulse 86 04/06/25 05:37 Resp 16 04/06/25 05:37 BP 111/78 04/06/25 05:37 Pulse Ox 95 04/06/25 03:39 FiO2 Intake & Output 04/05/25 04/06/25 04/06/25 18:59 06:59 18:59 Weight 77.111 kg - Labs CBC & Chem 7: 04/05/25 22:04 04/06/25 06:45 Labs: Abnormal Lab Results - Last 24 Hours (Table) 04/05/25 04/05/25 04/06/25 Range/Units 22:04 22:04 06:45 MCH 32.9 H (27.0-32.0) pg MPV 8.9 L (9.5-12.2) fL Eosinophils # 0.00 L (0.04-0.35) 10*3/uL Creatinine 0.64 L 0.48 L (0.66-1.25) mg/dL Glucose 174 H (74-99) mg/dL AST 70 H (17-59) U/L ALT 109 H 96 H (4-49) U/L Serum Alcohol 266 H* mg/dL
[2025-04-06] MEDS: FOLIC ACID 1 MG TAB PO SCH (09:48)
[2025-04-06] MEDS: MULTIVITAMINS, THERA 1 EACH TAB PO SCH (09:48)
[2025-04-06] MEDS ORDERED: PHENobarbitaL 16.2 MG TAB PO ONE ×2 (12:00→16:00)
[2025-04-06] MEDS: NICOTINE 21MG/24HR PATCH TRANSDERM SCH (23:02)
[2025-04-07 02:19] VITALS: PULSE 75
[2025-04-07 07:58] VITALS: BP 123/72; RESP 17; TEMP 97.8
[2025-04-07] MEDS: THIAMINE 100 MG TAB PO SCH (08:03)
[2025-04-07] MEDS: chlordiazePOXIDE 25 MG CAP PO SCH (08:03)
--- NOTE | 2025-04-07 12:11 | P.DS ---
Providers Date of admission: 04/05/25 23:56 Attending physician: Jennifer Metzger MD Primary care physician: Stated None Hospital Course: Discharge Diagnosis: Alcohol withdrawal History of alcohol withdrawal seizure Alcohol use disorder Tobacco dependence Elevated liver enzymes, likely secondary to alcohol use Hospital Course: Patient is a 34-year-old male with past medical history of alcohol abuse, tobacco use disorder, nephrolithiasis, history of alcohol withdrawal seizure, who presented to the ER for alcohol withdrawal treatment. Patient has prior history of alcohol withdrawal admission. He drinks approximately 1/5of alcohol per day. Last drink was today at 4:30 PM. He feels tremor, sweating. He has 2 babies 3 and a 5 years old, he seems to be motivated to quit drinking. In the ER he was afebrile, blood pressure elevated 145/81, satting well on room air. Blood work revealed normal WBC count and hemoglobin, sodium and potassium WNL, creatinine 0.64, glucose elevated 174, AST and ALT elevated 70 and 109 up accordingly, previously had elevated AST as well.Alcohol level 266. EKG showed sinus tachycardia, QTc 395. Admitted for further management of alcohol intoxication, withdrawal, started on CIWA with Ativan and Librium taper. 04/07: Patient seen and examined at bedside, he feels back to baseline, his AST normalized and ALT trended down to 96. His CIWA is 0. He requested to be discharged. He will be provided with Librium 20 mg 3 times daily for 3 days. He says that he has AA meetings set up as well as a sponsor. He will work on smoking cessation after he is in remission for his alcohol use disorder. Patient seen and examined at bedside. Vital signs reviewed and stable. General: [nontoxic], [no distress], [appears at stated age] Derm: [warm], [dry] Head: [atraumatic], [normocephalic], [symmetric] Eyes: [EOMI], [no lid lag], [anicteric sclera] Mouth: [no lip lesion], [mucus membranes moist] Cardiovascular: [S1S2 reg], [no murmur] Lungs: [CTA bilateral], [no rhonchi, no rales] , [no accessory muscle use] Abdominal: [soft], [ nontender to palpation], [no guarding], [no appreciable organomegaly] Ext: [no gross muscle atrophy], [no edema], [no contractures] Neuro: [ CN II-XI grossly intact], [no focal neuro deficits] Psych: [Alert], [oriented], [appropriate affect] A total of 40 minutes of time were spent preparing this complex discharge summary. Patient was discharged on 04/07/2025. Patient Condition at Discharge: Fair Plan - Discharge Summary New Discharge Prescriptions: New Folic Acid 1 mg PO DAILY #30 tab Thiamine [Vitamin B-1] 100 mg PO DAILY #30 tab chlordiazePOXIDE HCl [Librium] 20 mg PO TID 3 Days #18 capsule Discharge Medication List Folic Acid 1 mg PO DAILY #30 tab 04/07/25 [Rx] Thiamine [Vitamin B-1] 100 mg PO DAILY #30 tab 04/07/25 [Rx] chlordiazePOXIDE HCl [Librium] 20 mg PO TID 3 Days #18 capsule 04/07/25 [Rx] Follow up Appointment(s)/Referral(s): None,Stated [Primary Care Provider] - 1-2 days Patient Instructions/Handouts: Alcohol Intoxication (DC), Alcohol Withdrawal (GEN) Activity/Diet/Wound Care/Special Instructions: Please, follow-up with your primary care physician. Take your vitamins, highly recommend alcohol cessation, attend local AA meetings, talk to your PCP should you be interested in rehab program. Discharge/Stand Alone Forms: AA Meetings [place] Discharge Disposition: HOME SELF-CARE
== END 2025-04-07 09:46 | disposition home or self-care (01) | DRG 775 ==
LOC: EC 21:17 → 5NMEDONC 23:56
PROVIDERS: ADMIT Student in an Organized Health Care Education/Training Program; ATTEND Student in an Organized Health Care Education/Training Program
DX: F10.129 Alcohol abuse with intoxication, unspecified (principal); Y90.8 Blood alcohol level of 240 mg/100 ml or more; F10.139 Alcohol abuse with withdrawal, unspecified; F17.200 Nicotine dependence, unspecified, uncomplicated; R03.0 Elevated blood-pressure reading, without diagnosis of hypertension; R74.8 Abnormal levels of other serum enzymes; R74.01 Elevation of levels of liver transaminase levels; Z87.442 Personal history of urinary calculi; Z88.8 Allergy status to other drugs, medicaments and biological substances
CPT/HCPCS: 36415; 80053; 80320; 83735; 85025; 93005; 99285

== ENCOUNTER 2025-04-17 10:16 | Observation (INO) | payer OTHER ==
[2025-04-17 11:01] LABS: ALT 81 U/L (4-49); African American GFR (CKD) >90 (>60 ml/min/1.73 sqM); Albumin 5.1 g/dL (3.5-5.0); Anion Gap 27 mmol/L; Blood Urea Nitrogen 13 mg/dL (9-20); Calcium 9.1 mg/dL (8.4-10.2); Carbon Dioxide 16 mmol/L (22-30); Chloride 100 mmol/L (98-107); Glucose 82 mg/dL (74-99); Non-African American GFR(CKD) >90 (>60 ml/min/1.73 sqM); Sodium 143 mmol/L (137-145); Total Bilirubin 1.2 mg/dL (0.2-1.3); Total Protein 8.1 g/dL (6.3-8.2)
[2025-04-17 11:09] LABS: Basophils # (A) 0.06 10*3/uL (0.00-0.10); Basophils % (A) 1.1 %; HCT 46.6 % (39.6-50.0); HGB 16.6 g/dL (13.0-17.0); Immature Platelet Fraction 5.8 % (1.1-6.1); Lymphocytes # (A) 1.22 10*3/uL (0.90-5.00); Lymphocytes % (A) 21.7 %; MCH 33.4 pg (27.0-32.0); MCHC 35.6 g/dL (32.0-37.0); MCV 93.8 fL (80.0-97.0); Mean Platelet Volume 10.6 fL (9.5-12.2); Monocytes % (A) 7.1 %; Neutrophils # (A) 3.93 10*3/uL (1.80-7.70); Neutrophils % (A) 69.9 %; RBC 4.97 10*6/uL (4.40-5.60); RDW 13.5 % (11.5-14.5); WBC 5.62 10*3/uL (4.50-10.00)
[2025-04-17 11:11] LABS: AST 112 U/L (17-59); Alcohol 471 mg/dL; Alkaline Phosphatase 63 U/L (38-126); Potassium 4.1 mmol/L (3.5-5.1)
[2025-04-17 12:13] LABS: Platelet Count 77 10*3/uL (140-440)
--- NOTE | 2025-04-17 12:42 | CT ---
EXAMINATION TYPE: CT brain cspine wo con DATE OF EXAM: 04/17/2025 12:28 PM COMPARISON: None. CLINICAL INDICATION: Male, 34 years old with history of hit head; ETOH, Hit head., pain TECHNIQUE: Brain: Multiple axial CT images of the brain were obtained without IV contrast. Cspine: Axial CT images from the skull base to the inferior aspect of T2 we obtained without intraven ous contrast. Coronal and sagittal reformatted images were also reviewed. . CT DLP: 1758 mGycm, Automated exposure control for dose reduction was used. FINDINGS: Brain: Extra-axial spaces: No abnormal extra-axial fluid collections. Ventricular system: Dilatation in proportion to cerebral atrophy. Cerebral parenchyma: Cerebral atrophy. No acute intraparenchymal hemorrhage or mass effect. The helms -white junction is well differentiated. Scattered hypoattenuating areas are seen within the white mat ter. Cerebellum: Unremarkable. Mass effect: No evidence of midline shift. Intracranial vasculature: Atherosclerotic calcifications of the intracranial vessels. Soft tissues: Normal. Calvarium/osseous structures: No depressed skull fracture. Paranasal sinuses and mastoid air cells: Clear. Visualized orbits: Orbital contents are intact. Cervical spine: Fracture: None. Osseous structures: Multilevel degenerative disc disease changes with endplate spurring and disc oste ophyte complex's. Vertebral alignment: Within normal limits. Spinal canal/Neural Foramina: No evidence of significant spinal canal narrowing. No evidence for sign ificant neural foraminal stenosis. Neck soft tissues: Prevertebral soft tissues are within normal limits. Other: The airway is patent. The lung apices are clear. IMPRESSION: No acute intracranial process. Nonspecific white matter changes, likely secondary to chronic small vessel ischemic disease. No evidence of cervical spine fracture. Mild multilevel degenerative disc disease. [facility], , 04/17/2025 12:40 PM
--- NOTE | 2025-04-17 13:08 | ED ---
Alcohol HPI - General Chief Complaint: Alcohol Stated Complaint: ETOH Time Seen by Provider: 04/17/25 10:20 Source: EMS Mode of arrival: EMS Limitations: altered mental status - History of Present Illness Initial Comments: 34-year-old male with history of alcohol abuse who presents to the emergency department from [facility]. Patient presented there today for rehab. He admits that he drank 1/5 of alcohol before going into the facility. He was fou nd by staff with a very unsteady gait. Patient had fell forward and hit his head against a wall. The patient did not fully lose consciousness. Was transferred to our facility for medical clearance. Patient is extremely sleepy upon evaluation. Admits to drinking alcohol and states that he wants to get sober. Does have a history of alcohol withdrawal seizures. - Related Data Previous Rx's Medication Instructions Recorded Folic Acid 1 mg PO DAILY #30 tab 04/07/25 Thiamine [Vitamin B-1] 100 mg PO DAILY #30 tab 04/07/25 Allergies Allergy/AdvReac Type Severity Reaction Status Date / Time iodine Allergy Anaphylaxis Verified 04/17/25 10:21 shellfish derived [Shellfish] Allergy Anaphylaxis Verified 04/17/25 10:21 Review of Systems ROS Statement: Those systems with pertinent positive or pertinent negative responses have been documented in the HPI. ROS Other: All systems not noted in ROS Statement are negative. Past Medical History Additional Past Medical History / Comment(s): kidney stones, alcohol withdrawal seizures History of Any Multi-Drug Resistant Organisms: None Reported Past Surgical History: No Surgical Hx Reported Additional Past Surgical History / Comment(s): Stents in kidneys, lithotripsy; kidney stones, last 2 months ago Past Psychological History: No Psychological Hx Reported Smoking Status: Current every day smoker Past Alcohol Use History: Abuse, Daily, Heavy Past Drug Use History: Marijuana General Exam Limitations: altered mental status General appearance: appears intoxicated, lethargic Head exam: Present: atraumatic, normocephalic, normal inspection Eye exam: Present: normal appearance, PERRL, EOMI. Absent: scleral icterus, conjunctival injection, periorbital swelling ENT exam: Present: normal exam, mucous membranes moist Neck exam: Present: normal inspection. Absent: tenderness, meningismus, lymphadenopathy Respiratory exam: Present: normal lung sounds bilaterally. Absent: respiratory distress, wheezes, rales, rhonchi, stridor Cardiovascular Exam: Present: normal rhythm, tachycardia GI/Abdominal exam: Present: soft, normal bowel sounds. Absent: distended, tenderness, guarding, rebound, rigid Extremities exam: Present: normal inspection, full ROM, normal capillary refill. Absent: tenderness, pedal edema, joint swelling, calf tenderness Neurological exam: Present: other (Slurred speech) Skin exam: Present: warm, dry, intact, normal color. Absent: rash Course Vital Signs 04/17/25 04/17/25 04/17/25 10:19 13:04 19:17 Temperature 97.9 F Pulse Rate 109 H 88 110 H Respiratory 22 18 18 Rate Blood Pressure 121/88 129/94 124/82 O2 Sat by Pulse 96 98 99 Oximetry 04/17/25 22:28 Temperature 98.6 F Pulse Rate 101 H Respiratory 18 Rate Blood Pressure 119/76 O2 Sat by Pulse 95 Oximetry Medical Decision Making - Medical Decision Making Was pt. sent in by a medical professional or institution (, PA, SPACE SCHEDULER, urgent care, hospital, or fpc...) When possible be specific @ -Patient sent in from [facility] Did you speak to anyone other than the patient for history (EMS, parent, family, police, friend...)? What history was obtained from this source @ -I spoke with EMS for history Did you review nursing and triage notes (agree or disagree)? Why? @ -I reviewed and agree with nursing and triage notes Were old charts reviewed (outside hosp., previous admission, EMS record, old EKG, old radiological studies, urgent care reports/EKG's, fpc records)? Report findings @ -I reviewed the paperwork that was sent in with the patient from [facility] Differential Diagnosis (chest pain, altered mental status, abdominal pain women, abdominal pain men, vaginal bleeding, weakness, fever, dyspnea, syncope, headache, dizziness, GI bleed, back pain, seizure, CVA, palpatations, mental health, musculoskeletal)? @ -Differential Altered Mental Status: Hypoglycemia, DKA, hypercapnia, ETOH, overdose, CO poisoning, trauma, myxedema coma, HTN encephalopathy, infection, encephalitis, psychosis, intercranial hemorrhage, hepatic encephalopathy, meningitis, CVA, this is not meant to be an all-inclusive list EKG interpreted by me (3pts min.). @ -Not done X-rays interpreted by me (1pt min.). @ -None done CT interpreted by me (1pt min.). @ -Yes which demonstrates no acute process U/S interpreted by me (1pt. min.). @ -None done What testing was considered but not performed or refused? (CT, X-rays, U/S, labs)? Why? @ -None What meds were considered but not given or refused? Why? @ -None Did you discuss the management of the patient with other professionals (professionals i.e. DrCruz, PA, SPACE SCHEDULER, lab, RT, psych nurse, director of social services, lawyer criminal, teacher, property disposal officer, case repairer)? Give summary @ -Spoke with Dr. Ruelas who will admit the patient Was smoking cessation discussed for >3mins.? @ -No Was critical care preformed (if so, how long)? @ -No Were there social determinants of health that impacted care today? How? (Homelessness, low income, unemployed, alcoholism, drug addiction, transportation, low edu. Level, literacy, decrease access to med. care, penitentiary, rehab)? @ -History of substance abuse Was there de-escalation of care discussed even if they declined (Discuss DNR or withdrawal of care, Hospice)? DNR status @ -No What co-morbidities impacted this encounter? (DM, HTN, Smoking, COPD, CAD, Cancer, CVA, ARF, Chemo, Hep., AIDS, mental health diagnosis, sleep apnea, morb id obesity)? @ -Alcohol abuse Was patient admitted / discharged? Hospital course, mention meds given and route, prescriptions, significant lab abnormalities, going to OR and other pertinent info. @ -Upon arrival patient seen and evaluated in room 13. Thorough history and physical exam was performed. Patient is extremely intoxicated. CT of his head was performed which demonstrates no acute intracranial process. History of alcohol withdrawal seizures. Patient will be admitted for extreme intoxication with concern for delirium tremens. Spoke with Dr. Ruelas for the admission Undiagnosed new problem with uncertain prognosis? @ -No Drug Therapy requiring intensive monitoring for toxicity (Heparin, Nitro, Insulin, Cardizem)? @ -No Were any procedures done? @ -No Diagnosis/symptom? @ -Acute alcohol intoxication, blunt head trauma Acute, or Chronic, or Acute on Chronic? @ -Acute Uncomplicated (without systemic symptoms) or Complicated (systemic symptoms)? @ -Complicated Side effects of treatment? @ -No Exacerbation, Progression, or Severe Exacerbation? @ -No Poses a threat to life or bodily function? How? (Chest pain, USA, MA, pneumonia, PE, COPD, DKA, ARF, appy, cholecystitis, CVA, Diverticulitis, Homicidal, Suicidal, threat to staff... and all critical care pts) @ -No - Lab Data Result diagrams: 04/17/25 10:55 04/18/25 05:25 Lab Results 04/17/25 04/17/25 Range/Units 10:35 10:55 WBC 5.62 (4.50-10.00) 10*3/uL RBC 4.97 (4.40-5.60) 10*6/uL Hgb 16.6 (13.0-17.0) g/dL Hct 46.6 (39.6-50.0) % MCV 93.8 (80.0-97.0) fL MCH 33.4 H (27.0-32.0) pg MCHC 35.6 (32.0-37.0) g/dL Plt Count 77 L D (140-440) 10*3/uL MPV 10.6 (9.5-12.2) fL Immature Gran % (Auto) 0.2 % Neutrophils % 69.9 % Lymphocytes % 21.7 % Monocytes % 7.1 % Eosinophils % 0.0 % Basophils % 1.1 % Immature Gran # 0.01 (0.00-0.04) 10*3/uL Neutrophils # 3.93 (1.80-7.70) 10*3/uL Lymphocytes # 1.22 (0.90-5.00) 10*3/uL Monocytes # 0.40 (0.20-1.00) 10*3/uL Eosinophils # 0.00 L (0.04-0.35) 10*3/uL Basophils # 0.06 (0.00-0.10) 10*3/uL Manual Slide Review Performed Immature Plt Fraction 5.8 (1.1-6.1) % Sodium 143 (137-145) mmol/L Potassium 4.1 (3.5-5.1) mmol/L Chloride 100 (98-107) mmol/L Carbon Dioxide 16 L (22-30) mmol/L Anion Gap 27 mmol/L BUN 13 (9-20) mg/dL Creatinine 0.55 L (0.66-1.25) mg/dL Est GFR (CKD-EPI)AfAm >90 (>60 ml/min/1.73 sqM) Est GFR (CKD-EPI)NonAf >90 (>60 ml/min/1.73 sqM) Glucose 82 (74-99) mg/dL Calcium 9.1 (8.4-10.2) mg/dL Total Bilirubin 1.2 (0.2-1.3) mg/dL AST 112 H (17-59) U/L ALT 81 H (4-49) U/L Alkaline Phosphatase 63 (38-126) U/L Total Protein 8.1 (6.3-8.2) g/dL Albumin 5.1 H (3.5-5.0) g/dL Serum Alcohol 471 H* mg/dL Disposition Clinical Impression: Alcoholic intoxication, Toxic encephalopathy, Head injury Disposition: ADMITTED IP TO THIS [facility] Condition: Stable Is patient prescribed a controlled substance at d/c from ED?: No Time of Disposition: 13:08 Decision to Admit Reason: Admit from EC Decision Date: 04/17/25 Decision Time: 13:08
[2025-04-17] MEDS ORDERED: NALOXONE 0.4 MG/ML 1 ML VIAL IV PRN (13:09)
[2025-04-17] MEDS ORDERED: ONDANSETRON 4 MG/2 ML VIAL IVP PRN (13:09)
[2025-04-17] MEDS: NICOTINE 21MG/24HR PATCH TRANSDERM STA (13:10)
[2025-04-17] MEDS ORDERED: LORazepam 1 MG TAB PO PRN ×2 (13:16)
[2025-04-17] MEDS: SODIUM CHLORIDE 0.9% 1,000 ML IV SCH (13:35)
--- NOTE | 2025-04-17 13:47 | P.HPIM ---
History of Present Illness H&P Date: 04/17/25 History of Presenting Illness: Patient is a 34-year-old male with a past medical history of daily alcohol abuse reported drinking approximately 1/5 or more of liquor daily. Patient had appointment at [place] this morning, but arrived to their facility with an unsteady gait falling and hitting his head against the wall and was found to be intoxicated and sent to our facility for evaluation. Upon arrival to our facility, patient underwent evaluation in the emergency department. Vital signs upon arrival show blood pressure 121/88, heart rate 109, respiratory rate 22, temp 97.9 F, and SpO2 of 96% on room air. Labs completed and reviewed. CBC showing thrombocytopenia with platelet count of 77. BMP showing high anion gap metabolic acidosis with chloride of 100, bicarb of 16, and anion gap of 27. Blood glucose 82. Liver enzymes showing transaminitis with AST of 112, ALT of 81, and alkaline phosphatase of 63. Serum alcohol level was 471. CT head and cervical spine negative for acute intracranial process showing nonspecific white matter changes and no evidence of cervical spine fracture. Patient admitted under our services for medically assisted detox at this time with plans to discharge tomorrow morning once clinically sober so patient can go to [place]. Patient seen and fully evaluated in ER room 13. He was sleeping but easily awoken via verbal stimuli. Patient alert and oriented and answering questions appropriately but very concerned that he needs his medications. Patient was instructed that Librium being held at this time while patient is intoxicated and currently on CIWA protocol with symptom triggered medication management with benzodiazepines. Patient currently denies having headache, lightheadedness, dizziness, chest pain, palpitations, or any other complaints at this time. Review of systems: Pertinent positives and negatives as discussed in HPI, a complete review of systems was performed and all other systems are negative. Physical exam: Vital signs reviewed and stable. General: Nontoxic, no distress and appears stated age. Derm: Skin warm and dry, normal coloration for ethnicity. Head: Atraumatic, normocephalic and symmetric. Eyes: EOM's intact, no lid lag, and anicteric sclera Mouth: no lip lesions, mucus membranes moist Cardiovascular: regular rate and rhythm with normal S1S2, no murmur, positive posterior tibial pulses bilaterally, and cap refill < 2 seconds. Lungs: Respirations even, regular, and unlabored on room air. Lungs CTA bilaterally, no rhonchi, no rales, no wheezing, and no accessory muscle usage. Abdominal: soft, nontender to palpation, no guarding, no appreciable organomegaly Ext: ROM intact. No gross muscle atrophy, no edema, no contractures Neuro: Speech clear, face symmetrical and CN II-XII grossly intact with no noted focal neuro deficits Psych: Alert and oriented to person, place, time, and situation. Appropriate and pleasant affect. Assessment and Plan of Care: Alcohol intoxication in active alcoholic Transaminitis, secondary to daily alcohol abuse Thrombocytopenia, secondary to daily alcohol abuse -Order placed for monitoring of CIWA scores and patient to be medicated with Ativan 0.5 mg every 4 hours as needed for CIWA score of 4-5, Ativan 1 mg every 4 hours for CIWA score of 6-7, Ativan 2 mg every 3 hours CIWA score of 8-9, and Ativan 2 mg every 2 hours forr CIWA score of 10 or greater. -Continuous IV hydration with 0.9% normal saline at 130 cc/h. -Thiamine 100 mg daily, and Multivitamin daily, and Folate 1 mg daily -Seizure, fall, aspiration, and elopement precautions in place. -Urine drug screen -Continued close monitoring of electrolytes and replace as needed. -Telemetry monitoring. Nicotine dependence -Order placed for nicotine patch 21 mg daily. Counseled on smoking cessation. Fall prior to arrival - Patient had a fall prior to arrival hit head, CT head and neck negative for acute process. Patient currently denies dizziness, headache, lightheadedness, neck pain or any other complaints at this time. Maintain fall precautions The patient is admitted with an anticipated less than 2 midnight stay for evaluation of alcohol intoxication CODE STATUS: Full code DVT prophylaxis: Lovenox Discussed with: Patient, RN, and ED provider Anticipated discharge date: Likely tomorrow morning once clinically sober Anticipated discharge place: Return to [place] Patient was seen independently by Nurse Practitioner. This document was prepared using [employer] dictation software. Please allow for errors in injection molding process technician while rare they do occur. Arnoldo Boateng NP rendered care for this patient independently, reviewed the findings and plan as documented in the note above and agree with plan. I did not physically speak with or examine the patient on this date. Past Medical History Additional Past Medical History / Comment(s): kidney stones, alcohol withdrawal seizures History of Any Multi-Drug Resistant Organisms: None Reported Past Surgical History: No Surgical Hx Reported Additional Past Surgical History / Comment(s): Stents in kidneys, lithotripsy; kidney stones, last 2 months ago Past Psychological History: No Psychological Hx Reported Smoking Status: Current every day smoker Past Alcohol Use History: Abuse, Daily, Heavy Past Drug Use History: Marijuana Medications and Allergies Home Medications Medication Instructions Recorded Confirmed Type Folic Acid 1 mg PO DAILY #30 tab 04/07/25 Rx Thiamine [Vitamin B-1] 100 mg PO DAILY #30 tab 04/07/25 Rx chlordiazePOXIDE HCl [Librium] 20 mg PO TID 3 Days #18 capsule 04/07/25 Rx Allergies Allergy/AdvReac Type Severity Reaction Status Date / Time iodine Allergy Anaphylaxis Verified 04/17/25 10:21 shellfish derived [Shellfish] Allergy Anaphylaxis Verified 04/17/25 10:21 Physical Exam Vitals: Vital Signs Temp Pulse Resp BP Pulse Ox 04/17/25 13:04 88 18 129/94 98 04/17/25 10:19 97.9 F 109 H 22 121/88 96 Intake and Output 04/16/25 04/17/25 04/17/25 22:59 06:59 14:59 Other: Weight 77.111 kg Results CBC & Chem 7: 04/17/25 10:55 04/17/25 10:35 Labs: Abnormal Lab Results - Last 24 Hours (Table) 04/17/25 04/17/25 Range/Units 10:35 10:55 MCH 33.4 H (27.0-32.0) pg Plt Count 77 L D (140-440) 10*3/uL Eosinophils # 0.00 L (0.04-0.35) 10*3/uL Carbon Dioxide 16 L (22-30) mmol/L Creatinine 0.55 L (0.66-1.25) mg/dL AST 112 H (17-59) U/L ALT 81 H (4-49) U/L Albumin 5.1 H (3.5-5.0) g/dL Serum Alcohol 471 H* mg/dL
[2025-04-17] MEDS: THIAMINE 100 MG/ML 2 ML VIAL IM STA (14:25)
[2025-04-17 16:22] LABS: Amphetamine Screen,Urine Not Detected (NotDetected); Barbiturate Screen,Urine Not Detected (NotDetected); Benzodiazepines Screen,Urine Detected (NotDetected); Cocaine Screen,Urine Not Detected (NotDetected); Methadone Screen, Urine Not Detected (NotDetected); Opiate Screen,Urine Not Detected (NotDetected); Oxycodone Screen, Urine Not Detected (NotDetected); Phencyclidine Screen,Urine Not Detected (NotDetected); Tricyclic Antidepressant,Urine Not Detected (NotDetected); Urn Cannabinoid Scrn Detected (NotDetected)
[2025-04-17] MEDS: LORazepam 1 MG TAB PO PRN (17:24)
[2025-04-17] MEDS: LORazepam 0.5 MG TAB PO PRN (20:57)
[2025-04-18 07:56] VITALS: BP 121/77; PULSE 92; RESP 16; TEMP 97.8
[2025-04-18 08:36] LABS: Albumin 3.9 g/dL (3.8-4.9); BUN/Creat Ratio 15.17 Ratio (12.00-20.00); Blood Urea Nitrogen 9.1 mg/dL (9.0-27.0); Calcium 8.5 mg/dL (8.7-10.3); Carbon Dioxide 25.7 mmol/L (21.6-31.8); Chloride 99 mmol/L (96-109); Glucose 89 mg/dL (70-110); Magnesium 1.5 mg/dL (1.5-2.4); Potassium 3.6 mmol/L (3.5-5.5); Sodium 138 mmol/L (135-145)
[2025-04-18 08:37] LABS: ALT 78 U/L (10-49); AST 97 U/L (14-35); Albumin/Globulin Ratio 1.86 Ratio (1.60-3.17); Alkaline Phosphatase 51 U/L (41-126); Globulin 2.1 g/dL (1.6-3.3); Total Bilirubin 1.2 mg/dL (0.3-1.2)
[2025-04-18] MEDS: ENOXAPARIN 40 MG/0.4 ML SYRINGE SQ SCH (08:46)
[2025-04-18] MEDS: MULTIVITAMINS, THERA 1 EACH TAB PO SCH (08:47)
[2025-04-18] MEDS: THIAMINE 100 MG TAB PO SCH (08:47)
[2025-04-18] MEDS: NICOTINE 21MG/24HR PATCH TRANSDERM SCH (08:47)
[2025-04-18] MEDS: FOLIC ACID 1 MG TAB PO SCH (08:47)
[2025-04-18 10:45] LABS: Basophils # (A) 0.05 X 10*3/uL (0.00-0.10); Basophils % (A) 1.1 %; Eosinophils # (A) 0.06 X 10*3/uL (0.04-0.35); Eosinophils % (A) 1.3 %; HCT 39.2 % (39.6-50.0); HGB 13.5 g/dL (13.0-17.0); Immature Platelet Fraction 5.5 % (1.1-6.1); Lymphocytes # (A) 1.73 X 10*3/uL (0.90-5.00); MCH 33.3 pg (27.0-32.0); MCHC 34.4 g/dL (32.0-37.0); MCV 96.6 FL (80.0-97.0); Mean Platelet Volume 10.9 FL (9.5-12.2); Monocytes # (A) 0.48 X 10*3/uL (0.20-1.00); Monocytes % (A) 10.3 %; NRBC Per 100 WBC 0 X 10*3/uL (0.00-0.01); Neutrophils # (A) 2.34 X 10*3/uL (1.80-7.70); Neutrophils % (A) 50.1 %; Platelet Count 56 X 10*3/uL (140-440); RBC 4.06 X 10*6/uL (4.40-5.60); RBC Morphology Normal (Normal); RDW 13.7 % (11.5-14.5); WBC 4.67 X 10*3/uL (4.50-10.00)
[2025-04-18] MEDS: MAGNESIUM OXIDE 400 MG TAB PO STA (12:34)
--- NOTE | 2025-04-18 13:50 | P.DS ---
Providers Date of admission: 04/17/25 13:09 Expected date of discharge: 04/18/25 Attending physician: Rangel Ruelas Primary care physician: Stated None Hospital Course: Discharge Diagnosis: Alcohol intoxication in active alcoholic. Patient clinically sober and medically optimized for discharge at this time. CIWA score is 4. Patient strongly encouraged to avoid any and all alcohol use and to return to [place] as scheduled. Transaminitis, secondary to daily alcohol abuse Thrombocytopenia, secondary to daily alcohol abuse Nicotine dependence Fall while intoxicated prior to arrival. Patient had a fall prior to arrival hit head, CT head and neck negative for acute process. Hospital Course: Patient is a 34-year-old male with a past medical history of daily alcohol abuse reported drinking approximately 1/5 or more of liquor daily. Patient had appointment at [place] this morning, but arrived to their facility with an unsteady gait falling and hitting his head against the wall and was found to be intoxicated and sent to our facility for evaluation. Upon arrival to our facility, patient underwent evaluation in the emergency department. Vital signs upon arrival show blood pressure 121/88, heart rate 109, respiratory rate 22, temp 97.9 F, and SpO2 of 96% on room air. Labs completed and reviewed. CBC showing thrombocytopenia with platelet count of 77. BMP showing high anion gap metabolic acidosis with chloride of 100, bicarb of 16, and anion gap of 27. Blood glucose 82. Liver enzymes showing transaminitis with AST of 112, ALT of 81, and alkaline phosphatase of 63. Serum alcohol level was 471. CT head and cervical spine negative for acute intracranial process showing nonspecific white matter changes and no evidence of cervical spine fracture. Patient admitted under our services for medically assisted detox at this time with plans to discharge tomorrow morning once clinically sober so patient can go to [place].Patient clinically sober and medically optimized for discharge at this time. CIWA score is 4. Patient strongly encouraged to avoid any and all alcohol use and to return to [place] as scheduled. Physical exam: Vital signs reviewed and stable. General: Nontoxic, no distress and appears stated age. Derm: Skin warm and dry, normal coloration for ethnicity. Head: Atraumatic, normocephalic and symmetric. Eyes: EOM's intact, no lid lag, and anicteric sclera Mouth: no lip lesions, mucus membranes moist Cardiovascular: regular rate and rhythm with normal S1S2, no murmur, positive po sterior tibial pulses bilaterally, and cap refill < 2 seconds. Lungs: Respirations even, regular, and unlabored on room air. Lungs CTA bilaterally, no rhonchi, no rales, no wheezing, and no accessory muscle usage. Abdominal: soft, nontender to palpation, no guarding, no appreciable organomegaly Ext: ROM intact. No gross muscle atrophy, no edema, no contractures Neuro: Speech clear, face symmetrical and CN II-XII grossly intact with no noted focal neuro deficits Psych: Alert and oriented to person, place, time, and situation. Appropriate and pleasant affect. A total of 31 minutes of time were spent preparing this complex discharge summary. Pt was discharged on 04/18/2025 at 11:55 AM. Patient was seen independently by Nurse Practitioner. This document was prepared using [employer] dictation software. Please allow for errors in internal combustion engine subassembler while rare they do occur. Arnoldo Boateng NP rendered care for this patient independently, reviewed the findings and plan as documented in the note above. I did not physically speak with or examine the patient on this date. Patient Condition at Discharge: Stable Plan - Discharge Summary Discharge Rx Participant: No New Discharge Prescriptions: Continue Folic Acid 1 mg PO DAILY #30 tab Thiamine [Vitamin B-1] 100 mg PO DAILY #30 tab Discharge Medication List Folic Acid 1 mg PO DAILY #30 tab 04/07/25 [Rx] Thiamine [Vitamin B-1] 100 mg PO DAILY #30 tab 04/07/25 [Rx] Follow up Appointment(s)/Referral(s): [facility] [NON-STAFF] - 1 Week Patient Instructions/Handouts: Alcohol Intoxication (DC), Abuse of Alcohol (DC), Alcohol Withdrawal (DC) Discharge/Stand Alone Forms: Who Do I Call?, Community Resources, Outpatient Counseling, Inp Substance Abuse Facilities Discharge Disposition: HOME SELF-CARE
== END 2025-04-18 13:35 | disposition home or self-care (01) ==
LOC: EC 10:16 → 6NMEDSUR 13:09
PROVIDERS: ADMIT Student in an Organized Health Care Education/Training Program; ATTEND Student in an Organized Health Care Education/Training Program
DX: F10.129 Alcohol abuse with intoxication, unspecified (principal); D69.59 Other secondary thrombocytopenia; G92.9 Unspecified toxic encephalopathy; E87.20 Acidosis, unspecified; F17.200 Nicotine dependence, unspecified, uncomplicated; S09.90XA Unspecified injury of head, initial encounter; W19.XXXA Unspecified fall, initial encounter; Y90.8 Blood alcohol level of 240 mg/100 ml or more; R74.01 Elevation of levels of liver transaminase levels; Z79.899 Other long term (current) drug therapy
CPT/HCPCS: 96372 ×2; 82075; 99285; 36415; 80053 ×2; 83735; 85025 ×2; 80306; 72125; 70450; G0378 ×2; G0480; S4990 ×2; J3411; J1650; 80320